=== PATIENT | female | born 1945 | race Caucasian/White ===

== ENCOUNTER → 2016-12-11 | Outpatient (CLI) | payer MEDICARE, OTHER ==
--- NOTE | 2016-12-11 14:19 | BD ---
EXAMINATION TYPE: MG DEXA axial skeleton. DATE OF EXAM: 12/11/2016 1:33 PM COMPARISON: NONE CLINICAL HISTORY: HYPERCALCEMIA Height: 5'6 1/2 Weight: 174 FRAX RISK QUESTIONS: Alcohol (3 or more units per day): no Family History (Parent hip fracture): no Glucocorticoids (More than 3mos): no (Ex: prednisone, prednisolone, methylprednisolone, dexamethasone, and hydrocortisone). History of Fracture in Adulthood: no Secondary Osteoporosis: 1. Type 1 Diabetes: no 2. Hyperthyroidism: no 3. Menopause before 45: yes 4. Malnutrition: no 5. Chronic liver disease: no Rheumatoid Arthritis: no Current Tobacco Use: no RISK FACTORS HISTORY OF: Surgery to Spine When: age 43 Family History of Osteoporosis: Postmenopausal woman: MEDICATIONS: Additional Medications: blood pressure, cholesterols, vitamin , fish oil; Additional History: EXAM MEASUREMENTS: Bone mineral densitometry was performed using the [facility]. Bone mineral density about the R hip (g/cm2): 0.833 Bone mineral density about the L hip (g/cm2): 0.853 T Score values are as follows: -----R Neck: -1.5 -----L Neck: -1.3 -----R Total: -1.4 -----L Total: -1.2 IMPRESSION: Osteopenia (T Score between -2.5 and -1 as noted by T score values: [place] Hips There is slightly increased risk of fracture and the patient may be considered for treatment. Re-Screen 2-5 years. NOTE: T-SCORE=SD OF THE YOUNG ADULT MEAN.
== END | disposition home or self-care (01) ==
LOC: RADBDWWP 13:03
PROVIDERS: ATTEND Family Medicine
DX: M85.851 Other specified disorders of bone density and structure, right thigh (principal); M85.852 Other specified disorders of bone density and structure, left thigh; E83.52 Hypercalcemia
CPT/HCPCS: 77080

== ENCOUNTER 2017-06-14 10:29 | Emergency (ER) | payer MEDICARE, OTHER ==
[2017-06-14 10:39] VITALS: BP 135/65; PULSE 87; RESP 16; TEMP 98.4
--- NOTE | 2017-06-14 10:58 | ED ---
General Adult HPI - General Chief complaint: Urogenital Stated complaint: poss uti Time Seen by Provider: 06/14/17 10:52 Source: patient, RN notes reviewed Mode of arrival: ambulatory Limitations: no limitations - History of Present Illness Initial comments: Patient is a pleasant 72-year-old female presenting to the emergency department with complaints of dysuria. Onset of symptoms was this morning. Patient did notice some blood in her urine. No abdominal or back pain. No fevers. Symptoms are similar to previous urinary tract infections. - Related Data Home Medications Medication Instructions Recorded Confirmed Omeprazole [PriLOSEC] 20 mg PO BID 02/13/14 06/14/17 Aspirin 81 mg PO DAILY 05/04/14 06/14/17 [place]-3 Fatty Acids/Fish Oil [Fish 1 cap PO BID 08/25/14 06/14/17 Oil 1,000 mg Softgel] Pravastatin Sodium [Pravachol] 20 mg PO HS 07/07/16 06/14/17 Lisinopril-Hctz 20-12.5 mg 1 tab PO DAILY 05/08/17 06/14/17 [Zestoretic 20-12.5] Cholecalciferol [Vitamin D3] 1,000 unit PO BID 06/14/17 06/14/17 Previous Rx's Medication Instructions Recorded Sulfamethox-Tmp 800-160Mg [Bactrim 1 each PO Q12HR #20 tab 06/14/17 DS 800-160 mg] Allergies Allergy/AdvReac Type Severity Reaction Status Date / Time niacin AdvReac Unknown MUSCLE Verified 06/14/17 10:48 ACHES floracaine Allergy Severe Swelling Uncoded 06/14/17 10:39 OF EYE LIDS FROM DROPS Review of Systems ROS Statement: Those systems with pertinent positive or pertinent negative responses have been documented in the HPI. ROS Other: All systems not noted in ROS Statement are negative. Constitutional: Denies: fever, chills Eyes: Denies: eye pain ENT: Denies: ear pain Respiratory: Denies: cough Cardiovascular: Denies: chest pain Endocrine: Denies: fatigue Gastrointestinal: Denies: abdominal pain, nausea, vomiting Genitourinary: Reports: dysuria, hematuria Musculoskeletal: Denies: back pain Skin: Denies: rash Neurological: Denies: weakness Past Medical History Past Medical History: Atrial Fibrillation, Cancer, GERD/Reflux, Hyperlipidemia, Hypertension Additional Past Medical History / Comment(s): RECENT LEFT LEG SQUAMOUS CELL LESION REMOVED, SCABBED AREA, HIATAL HERNIA, SPINAL STENOSIS OF NECK, HX IRREGULAR HEART BEAT, HX ATRIAL FIB.,GONZALEZ'S ESOPHAGUS, OSTEOPOROSIS-HAD CT SCAN DONE LT SHOULDER- SHOWED PULMONARY NODULE 7MM LT UPPER LOBE- PATIENT STATES UNAWARE OF THIS HX OF PULMONARY NODULE History of Any Multi-Drug Resistant Organisms: None Reported Past Surgical History: Appendectomy, Back Surgery, Cardiac Ablation, Heart Catheterization, Hernia Repair, Hysterectomy, Joint Replacement Additional Past Surgical History / Comment(s): LESION REMOVED LEFT LEG, KYLE SHOULDER REPLACEMENT, KYLE CATARACTS, Past Anesthesia/Blood Transfusion Reactions: No Reported Reaction Past Psychological History: No Psychological Hx Reported Smoking Status: Former smoker Past Alcohol Use History: Occasional Past Drug Use History: None Reported - Past Family History Mother Family Medical History: Cancer Additional Family Medical History / Comment(s): BREAST & BONE CA- @ AGE 96 Sister(s) Family Medical History: Cancer Additional Family Medical History / Comment(s): SKIN CA General Exam Limitations: no limitations General appearance: alert, in no apparent distress Head exam: Present: atraumatic Eye exam: Present: normal appearance, PERRL ENT exam: Present: normal oropharynx Neck exam: Present: normal inspection Respiratory exam: Present: normal lung sounds bilaterally Cardiovascular Exam: Present: regular rate, normal rhythm GI/Abdominal exam: Present: soft, normal bowel sounds. Absent: distended, tenderness, guarding, rebound, rigid, pulsatile mass Neurological exam: Present: alert Psychiatric exam: Present: normal affect, normal mood Skin exam: Present: normal color Course Vital Signs 06/14/17 10:30 Temperature 98.4 F Pulse Rate 87 Respiratory 16 Rate Blood Pressure 135/65 O2 Sat by Pulse 98 Oximetry Medical Decision Making - Medical Decision Making Patient updated - Lab Data Lab Results 06/14/17 Range/Units 10:50 Urine Color Dark Red Urine Appearance Bloody H (Clear) Urine RBC >182 H (0-5) /hpf Urine WBC >182 H (0-5) /hpf Urine Bacteria Rare H (None) /hpf Disposition Clinical Impression: Urinary tract infection Disposition: HOME SELF-CARE Condition: Stable Instructions: Urinary Tract Infection in Women (ED) Additional Instructions: Please follow-up with primary care physician in the next couple of days for recheck. Have your primary care physician check urine culture results. Return for fever, pain, worsening symptoms or other concerns. Prescriptions: Sulfamethox-Tmp 800-160Mg [Bactrim DS 800-160 mg] 1 each PO Q12HR #20 tab Referrals: René Geronimo DO [Primary Care Provider] - 1-2 days Time of Disposition: 11:18
[2017-06-14 11:10] LABS: Bacteria,Urine Rare /hpf; Particle Count 4337; RBC,Urine >182 /hpf (0-5); WBC,Urine >182 /hpf (0-5)
[2017-06-14 11:11] LABS: Appearance,Urine Bloody (Clear)
== END 2017-06-14 11:35 | disposition home or self-care (01) ==
LOC: EC 10:29
DX: N39.0 Urinary tract infection, site not specified (principal); I48.91 Unspecified atrial fibrillation; K21.9 Gastro-esophageal reflux disease without esophagitis; I10 Essential (primary) hypertension; E78.5 Hyperlipidemia, unspecified; Z95.5 Presence of coronary angioplasty implant and graft; Z87.891 Personal history of nicotine dependence; Z79.82 Long term (current) use of aspirin; Z79.899 Other long term (current) drug therapy; Z88.8 Allergy status to other drugs, medicaments and biological substances
CPT/HCPCS: 87077; 87086; 87186; 99283

== ENCOUNTER → 2017-09-04 | Outpatient (CLI) | payer MEDICARE, OTHER ==
--- NOTE | 2017-09-08 10:25 | MM ---
Reason for exam: screening (asymptomatic). Last mammogram was performed 1 year and 4 months ago. History: Patient is postmenopausal and is nulliparous. Family history of breast cancer in mother at age 66 and breast cancer in cousin at age 65. Physical Findings: A clinical breast exam by your physician is recommended on an annual basis and results should be correlated with mammographic findings. MG 3D Screening Mammo W/Cad Bilateral CC and MLO view(s) were taken. Prior study comparison: May 15, 2016, right breast MG 3d work up w/cad RT. May 12, 2016, bilateral MG 3d screening mammo w/cad. The breast tissue is heterogeneously dense. This may lower the sensitivity of mammography. A couple tiny 5mm benign appearing circumscribed nodules are noted. ASSESSMENT: Benign, BI-RAD 2 RECOMMENDATION: Routine screening mammogram of both breasts in 1 year.
== END | disposition home or self-care (01) ==
LOC: RADMAMWWP 09:53
PROVIDERS: ATTEND Family Medicine
DX: Z12.31 Encounter for screening mammogram for malignant neoplasm of breast (principal)
CPT/HCPCS: 77063; 77067

== ENCOUNTER → 2017-10-05 | Outpatient (CLI) | payer MEDICARE, OTHER ==
--- NOTE | 2017-10-05 13:36 | US ---
EXAMINATION TYPE: US venous doppler duplex LE LT DATE OF EXAM: 10/05/2017 1:21 PM COMPARISON: NONE CLINICAL HISTORY: M79.605 Pain In Limb. Left popliteal fossa pain x 1 week SIDE PERFORMED: LEFT TECHNIQUE: The lower extremity deep venous system is examined utilizing real time linear array sonog cheyanne with graded compression, doppler sonography and color-flow sonography. VESSELS IMAGED: Common Femoral Vein Deep Femoral Vein Greater Saphenous Vein * Femoral Vein Popliteal Vein Small Saphenous Vein * Proximal Calf Veins (* superficial vessels) Grayscale, color doppler, spectral doppler imaging performed of the deep veins of the lower extremiti es. There is normal flow, compressibility, vascular waveforms Left Leg: Negative for DVT IMPRESSION: No sonographic evidence of deep venous thrombosis in the left lower extremity. Tech suki ngs called to Mesha at Dr Danielle's Office at exam's end.
== END | disposition home or self-care (01) ==
LOC: RADUSWWP 12:30
PROVIDERS: ATTEND Family Medicine
DX: M79.605 Pain in left leg (principal)

== ENCOUNTER → 2017-12-01 | Outpatient (CLI) | payer MEDICARE, OTHER | END | disposition home or self-care (01) | LOC: RADUSWWP 09:43 | PROVIDERS: ATTEND Family Medicine | DX: M79.605 Pain in left leg (principal) | CPT/HCPCS: 93923 ==

== ENCOUNTER 2018-01-06 11:57 | Observation (INO) | payer MEDICARE, OTHER ==
[2018-01-06] MEDS ORDERED: NITROGLYCERIN OINT 1 INCH/GM PACKET TOPICAL STA (12:36)
[2018-01-06] MEDS ORDERED: ASPIRIN 81 MG PO STA (12:36)
--- NOTE | 2018-01-06 12:38 | ED ---
General Adult HPI - General Chief complaint: Chest Pain Stated complaint: chest pain Time Seen by Provider: 01/06/18 12:28 Source: patient, RN notes reviewed Mode of arrival: wheelchair Limitations: no limitations - History of Present Illness Initial comments: Patient is a pleasant 72-year-old female presenting to the emergency Department with chest discomfort. Symptoms started yesterday. Symptoms are intermittent. Symptoms are usually worse with exertion. Patient has burning in her chest, up to 7/10. No discomfort at this time. Patient does get some mild associated dyspnea. Patient also had some sweating of her hands and feet. Patient does notice some tingling of her left arm. Patient does have some mild associated nausea. No history of similar symptoms previously. - Related Data Home Medications Medication Instructions Recorded Confirmed Omeprazole [PriLOSEC] 20 mg PO BID 02/13/14 01/06/18 Aspirin 81 mg PO DAILY 05/04/14 01/06/18 [place]-3 Fatty Acids/Fish Oil [Fish 1 cap PO BID 08/25/14 01/06/18 Oil 1,000 mg Softgel] Pravastatin Sodium [Pravachol] 20 mg PO HS 07/07/16 01/06/18 Lisinopril-Hctz 20-12.5 mg 1 tab PO DAILY 05/08/17 01/06/18 [Zestoretic 20-12.5] Cholecalciferol [Vitamin D3] 1,000 unit PO BID 06/14/17 01/06/18 Acetaminophen [Tylenol Arthritis] 650 mg PO DAILY PRN 01/06/18 01/06/18 Allergies Allergy/AdvReac Type Severity Reaction Status Date / Time niacin AdvReac Unknown MUSCLE Verified 01/06/18 12:48 ACHES floracaine Allergy Severe Swelling Uncoded 01/06/18 12:06 OF EYE LIDS FROM DROPS Review of Systems ROS Statement: Those systems with pertinent positive or pertinent negative responses have been documented in the HPI. ROS Other: All systems not noted in ROS Statement are negative. Constitutional: Denies: fever Eyes: Denies: eye pain ENT: Denies: ear pain Respiratory: Denies: cough Cardiovascular: Reports: chest pain Endocrine: Reports: fatigue Gastrointestinal: Reports: nausea Genitourinary: Denies: dysuria Musculoskeletal: Denies: back pain Skin: Denies: rash Neurological: Denies: headache Past Medical History Past Medical History: Atrial Fibrillation, Cancer, GERD/Reflux, Hyperlipidemia, Hypertension Additional Past Medical History / Comment(s): RECENT LEFT LEG SQUAMOUS CELL LESION REMOVED, SCABBED AREA, HIATAL HERNIA, SPINAL STENOSIS OF NECK, HX IRREGULAR HEART BEAT, HX ATRIAL FIB.,GONZALEZ'S ESOPHAGUS, OSTEOPOROSIS-HAD CT SCAN DONE LT SHOULDER- SHOWED PULMONARY NODULE 7MM LT UPPER LOBE- PATIENT STATES UNAWARE OF THIS HX OF PULMONARY NODULE History of Any Multi-Drug Resistant Organisms: None Reported Past Surgical History: Appendectomy, Back Surgery, Cardiac Ablation, Heart Catheterization, Hernia Repair, Hysterectomy, Joint Replacement Additional Past Surgical History / Comment(s): LESION REMOVED LEFT LEG, KYLE SHOULDER REPLACEMENT, KYLE CATARACTS, Past Anesthesia/Blood Transfusion Reactions: No Reported Reaction Past Psychological History: No Psychological Hx Reported Smoking Status: Former smoker Past Alcohol Use History: None Reported Past Drug Use History: None Reported - Past Family History Mother Family Medical History: Cancer Additional Family Medical History / Comment(s): BREAST & BONE CA- @ AGE 96 Sister(s) Family Medical History: Cancer Additional Family Medical History / Comment(s): SKIN CA General Exam Limitations: no limitations General appearance: alert, in no apparent distress Head exam: Present: atraumatic Eye exam: Present: normal appearance, PERRL ENT exam: Present: normal oropharynx Neck exam: Present: normal inspection Respiratory exam: Present: normal lung sounds bilaterally. Absent: chest wall tenderness Cardiovascular Exam: Present: regular rate, normal rhythm Expanded Peripheral pulses: 2+: Radial (R), Radial (L), Dorsalis Pedis (R), Dorsalis Pedis (L) GI/Abdominal exam: Present: soft. Absent: tenderness Extremities exam: Present: normal inspection. Absent: pedal edema, calf tenderness Neurological exam: Present: alert Psychiatric exam: Present: normal affect, normal mood Skin exam: Present: normal color Course Vital Signs 01/06/18 01/06/18 01/06/18 12:01 12:37 14:04 Temperature 98.6 F 97.8 F Pulse Rate 72 61 56 L Respiratory 18 16 18 Rate Blood Pressure 121/73 150/83 120/62 O2 Sat by Pulse 97 97 100 Oximetry EKG Findings - EKG Comments: EKG Findings:: Normal sinus rhythm 68. CT 140. QRS 94. QT 410. QTc 435. Normal axis. Normal QRS. No acute ST change. Medical Decision Making - Medical Decision Making Patient reevaluated and resting comfortably in bed. No discomfort at this time. Patient updated on results and plan. Dr. Gamez has been paged for admission for Dr. Corral - Lab Data Result diagrams: 01/06/18 12:21 01/06/18 12:21 Lab Results 01/06/18 01/06/18 01/06/18 Range/Units 12:21 12:21 12:21 WBC 5.8 (3.8-10.6) k/uL RBC 4.54 (3.80-5.40) m/uL Hgb 13.5 (11.4-16.0) gm/dL Hct 40.2 (34.0-46.0) % MCV 88.4 (80.0-100.0) fL MCH 29.6 (25.0-35.0) pg MCHC 33.5 (31.0-37.0) g/dL RDW 12.9 (11.5-15.5) % Plt Count 260 (150-450) k/uL Neutrophils % 55 % Lymphocytes % 32 % Monocytes % 9 % Eosinophils % 1 % Basophils % 1 % Neutrophils # 3.2 (1.3-7.7) k/uL Lymphocytes # 1.8 (1.0-4.8) k/uL Monocytes # 0.5 (0-1.0) k/uL Eosinophils # 0.1 (0-0.7) k/uL Basophils # 0.0 (0-0.2) k/uL PT (9.0-12.0) sec INR (<1.2) APTT (22.0-30.0) sec Sodium 138 (137-145) mmol/L Potassium 5.1 (3.5-5.1) mmol/L Chloride 100 (98-107) mmol/L Carbon Dioxide 25 (22-30) mmol/L Anion Gap 13 mmol/L BUN 23 H (7-17) mg/dL Creatinine 0.90 (0.52-1.04) mg/dL Est GFR (CKD-EPI)AfAm 74 (>60 ml/min/1.73 sqM) Est GFR (CKD-EPI)NonAf 64 (>60 ml/min/1.73 sqM) Glucose 161 H (74-99) mg/dL Calcium 10.4 H (8.4-10.2) mg/dL Magnesium 2.0 (1.6-2.3) mg/dL Total Bilirubin 0.5 (0.2-1.3) mg/dL AST 23 (14-36) U/L ALT 27 (9-52) U/L Alkaline Phosphatase 61 (38-126) U/L Total Creatine Kinase 41 (30-135) U/L CK-MB (CK-2) 1.2 (0.0-2.4) ng/mL CK-MB (CK-2) Rel Index 2.9 Troponin I <0.012 (0.000-0.034) ng/mL Total Protein 7.5 (6.3-8.2) g/dL Albumin 4.7 (3.5-5.0) g/dL 01/06/18 Range/Units 12:21 WBC (3.8-10.6) k/uL RBC (3.80-5.40) m/uL Hgb (11.4-16.0) gm/dL Hct (34.0-46.0) % MCV (80.0-100.0) fL MCH (25.0-35.0) pg MCHC (31.0-37.0) g/dL RDW (11.5-15.5) % Plt Count (150-450) k/uL Neutrophils % % Lymphocytes % % Monocytes % % Eosinophils % % Basophils % % Neutrophils # (1.3-7.7) k/uL Lymphocytes # (1.0-4.8) k/uL Monocytes # (0-1.0) k/uL Eosinophils # (0-0.7) k/uL Basophils # (0-0.2) k/uL PT 10.1 (9.0-12.0) sec INR 1.0 (<1.2) APTT 27.4 (22.0-30.0) sec Sodium (137-145) mmol/L Potassium (3.5-5.1) mmol/L Chloride (98-107) mmol/L Carbon Dioxide (22-30) mmol/L Anion Gap mmol/L BUN (7-17) mg/dL Creatinine (0.52-1.04) mg/dL Est GFR (CKD-EPI)AfAm (>60 ml/min/1.73 sqM) Est GFR (CKD-EPI)NonAf (>60 ml/min/1.73 sqM) Glucose (74-99) mg/dL Calcium (8.4-10.2) mg/dL Magnesium (1.6-2.3) mg/dL Total Bilirubin (0.2-1.3) mg/dL AST (14-36) U/L ALT (9-52) U/L Alkaline Phosphatase (38-126) U/L Total Creatine Kinase (30-135) U/L CK-MB (CK-2) (0.0-2.4) ng/mL CK-MB (CK-2) Rel Index Troponin I (0.000-0.034) ng/mL Total Protein (6.3-8.2) g/dL Albumin (3.5-5.0) g/dL - Radiology Data Radiology results: image reviewed (Chest x-ray shows no acute process) Disposition Clinical Impression: Chest pain Disposition: ADMITTED IP TO THIS [facility] Referrals: René Geronimo DO [Primary Care Provider] - 1-2 days Decision Time: 14:21
--- NOTE | 2018-01-06 12:57 | XR ---
EXAMINATION TYPE: XR chest 2V DATE OF EXAM: 01/06/2018 COMPARISON: None HISTORY: 72-year-old female with chest pain TECHNIQUE: PA and lateral views FINDINGS: The cardiomediastinal silhouette, aorta, and pulmonary vasculature are within normal limits. Mild dif fuse interstitial prominence and hyperinflation. No consolidation or pleural effusion. Minimal strand s of atelectasis at the peripheral lung bases. Partially visualized bilateral shoulder arthroplasties . IMPRESSION: COPD without acute cardiopulmonary process.
[2018-01-06 13:01] LABS: Basophils % (A) 1 %; Eosinophils # (A) 0.1 k/uL (0-0.7); Eosinophils % (A) 1 %; HCT 40.2 % (34.0-46.0); HGB 13.5 gm/dL (11.4-16.0); Lymphocytes # (A) 1.8 k/uL (1.0-4.8); Lymphocytes % (A) 32 %; MCH 29.6 pg (25.0-35.0); MCHC 33.5 g/dL (31.0-37.0); MCV 88.4 fL (80.0-100.0); Mean Platelet Volume 7.1; Monocytes # (A) 0.5 k/uL (0-1.0); Monocytes % (A) 9 %; Neutrophils # (A) 3.2 k/uL (1.3-7.7); Neutrophils % (A) 55 %; Platelet Count 260 k/uL (150-450); RBC 4.54 m/uL (3.80-5.40); RDW 12.9 % (11.5-15.5); WBC 5.8 k/uL (3.8-10.6)
[2018-01-06 13:03] LABS: Partial Thromboplastin Time 27.4 sec (22.0-30.0); Prothrombin Time 10.1 sec (9.0-12.0)
[2018-01-06 13:04] LABS: Albumin 4.7 g/dL (3.5-5.0); Calcium 10.4 mg/dL (8.4-10.2); Potassium 5.1 mmol/L (3.5-5.1); Total Bilirubin 0.5 mg/dL (0.2-1.3); Total Protein 7.5 g/dL (6.3-8.2)
[2018-01-06 13:24] LABS: Creatine Kinase 41 U/L (30-135)
[2018-01-06 13:37] LABS: Creatine Kinase MB 1.2 ng/mL (0.0-2.4); Troponin I <0.012 ng/mL (0.000-0.034)
[2018-01-06] MEDS ORDERED: NITROGLYCERIN SL TABS 0.4 MG TAB SUBLINGUAL PRN (14:21)
[2018-01-06] MEDS ORDERED: ACETAMINOPHEN TAB 325 MG TAB PO PRN (15:37)
[2018-01-06 19:32] LABS: Creatine Kinase 34 U/L (30-135)
[2018-01-06] MEDS: NITROGLYCERIN OINT 1 INCH/GM PACKET TOPICAL SCH ×2 (19:39→23:32)
[2018-01-06] MEDS: HEPARIN SODIUM,PORCINE 5,000 UNIT/ML 1 ML VIAL SQ SCH ×2 (19:39→23:32)
[2018-01-06 19:44] LABS: Creatine Kinase MB 0.9 ng/mL (0.0-2.4); Troponin I <0.012 ng/mL (0.000-0.034)
[2018-01-06] MEDS: CHOLECALCIFEROL 1,000 UNIT TAB PO SCH (20:08)
[2018-01-06] MEDS ORDERED: PRAVASTATIN SODIUM 20 MG TAB PO SCH (21:00)
[2018-01-06] MEDS ORDERED: NON-FORMULARY DRUG (Omega-3 Fatty Acids/Fish Oil [Fish Oil 1,000 Mg Softgel] 1 CAP) PO SCH (21:00)
[2018-01-06] MEDS ORDERED: IPRATROPIUM-ALBUTEROL 3 ML NEB INHALATION PRN (22:08)
--- NOTE | 2018-01-06 22:16 | P.HPIM ---
History of Present Illness H&P Date: 01/06/18 Chief Complaint: Chest pain Patient is a 72-year-old female with a known history of hypertension, hyperlipidemia, GERD and history of irregular heart rate and cardiac ablation came to ER with complaints of chest pain, burning sensation.. Left retrosternal and radiating to the left arm felt like tingling sensation. Patient says that pain is associated with nausea, sweating, dizziness and lightheadedness. A mcrae has been having chest pain since yesterday on and off lasting about 10 minutes. Chest pain associated with shortness of breath mild. Denied any recent illnesses. No exertional shortness of breath. No history of coronary artery disease in the past. Patient does follow with Dr. Camp Denied any recent illnesses or sick contacts. No recent travel. Currently patient denied any complaints of chest pain. No leg swelling. Chest x-ray showed COPD without acute process EKG normal sinus rhythm next and troponin 2 negative Review of Systems Constitutional: Patient denies any fever or chills . No generalized weakness or weight loss. Abdomen: Patient denied nausea vomiting and diarrhea and abdominal pain. Cardiovascular: Patient denies any chest pain or short of breath no palpitations. Respiratory: patient denied any cough is from production. No shortness of breath Neurologic: Patient denied any numbness or tingling headache. Musculoskeletal: Patient denies any complaints of joint swelling or deformity. Skin: Negative Psychiatric: Negative Endocrine: No heat or cold intolerance. No recent weight gain. Genitourinary: No dysuria or hematuria. All other 14 point ROS negative except the above Past Medical History Past Medical History: Atrial Fibrillation, Cancer, GERD/Reflux, Hyperlipidemia, Hypertension Additional Past Medical History / Comment(s): RECENT LEFT LEG SQUAMOUS CELL LESION REMOVED, SCABBED AREA, HIATAL HERNIA, SPINAL STENOSIS OF NECK, HX IRREGULAR HEART BEAT, HX ATRIAL FIB.,GONZALEZ'S ESOPHAGUS, OSTEOPOROSIS-HAD CT SCAN DONE LT SHOULDER- SHOWED PULMONARY NODULE 7MM LT UPPER LOBE- PATIENT STATES UNAWARE OF THIS HX OF PULMONARY NODULE History of Any Multi-Drug Resistant Organisms: None Reported Past Surgical History: Appendectomy, Back Surgery, Cardiac Ablation, Heart Catheterization, Hernia Repair, Hysterectomy, Joint Replacement Additional Past Surgical History / Comment(s): LESION REMOVED LEFT LEG, KYLE SHOULDER REPLACEMENT, KYLE CATARACTS, Past Anesthesia/Blood Transfusion Reactions: No Reported Reaction Past Psychological History: No Psychological Hx Reported Smoking Status: Former smoker Past Alcohol Use History: None Reported Past Drug Use History: None Reported - Past Family History Mother Family Medical History: Cancer Additional Family Medical History / Comment(s): BREAST & BONE CA- @ AGE 96 Sister(s) Family Medical History: Cancer Additional Family Medical History / Comment(s): SKIN CA Father Family Medical History: Dementia Additional Family Medical History / Comment(s): alzheimers. at age 92 Medications and Allergies Home Medications Medication Instructions Recorded Confirmed Type Omeprazole [PriLOSEC] 20 mg PO BID 02/13/14 01/06/18 History Aspirin 81 mg PO DAILY 05/04/14 01/06/18 History [place]-3 Fatty Acids/Fish Oil [Fish 1 cap PO BID 08/25/14 01/06/18 History Oil 1,000 mg Softgel] Pravastatin Sodium [Pravachol] 20 mg PO HS 07/07/16 01/06/18 History Lisinopril-Hctz 20-12.5 mg 1 tab PO DAILY 05/08/17 01/06/18 History [Zestoretic 20-12.5] Cholecalciferol [Vitamin D3] 1,000 unit PO BID 06/14/17 01/06/18 History Acetaminophen [Tylenol Arthritis] 650 mg PO DAILY PRN 01/06/18 01/06/18 History Allergies Allergy/AdvReac Type Severity Reaction Status Date / Time niacin AdvReac Unknown MUSCLE Verified 01/06/18 12:48 ACHES floracaine Allergy Severe Swelling Uncoded 01/06/18 12:06 OF EYE LIDS FROM DROPS Physical Exam Vitals: Vital Signs Temp Pulse Resp BP Pulse Ox 01/06/18 14:04 97.8 F 56 L 18 120/62 100 01/06/18 12:37 61 16 150/83 97 01/06/18 12:01 98.6 F 72 18 121/73 97 Intake and Output 01/06/18 01/06/18 01/06/18 06:59 14:59 22:59 Other: Weight 81.647 kg PHYSICAL EXAMINATION: Patient is lying in the bed comfortably, no acute distress, awake alert and oriented.. HEENT: Normocephalic. Neck is supple. Pupils reactive. Nostrils clear. Oral cavity is moist. Ears reveal no drainage. Neck reveals no JVD, carotid bruits, or thyromegaly. CHEST EXAMINATION: Trachea is central. Symmetrical expansion. Lung branch clear to auscultation and percussion. CARDIAC: Normal S1, S2 with no gallops. Systolic murmur. ABDOMEN: Soft. Bowel sounds normal. No organomegaly. No abdominal bruits. Extremities: reveal no edema. No clubbing or cyanosis Neurologically awake, alert, oriented x3 with well-coordinated movements. No focal deficits noted Skin: No rash or skin lesions. Psychiatric: Coperative. Nonsuicidal Musculoskeletal: No joint swelling or deformity. Normal range of motion. Results CBC & Chem 7: 01/06/18 12:21 01/06/18 12:21 Labs: Abnormal Lab Results - Last 24 Hours (Table) 01/06/18 Range/Units 12:21 BUN 23 H (7-17) mg/dL Glucose 161 H (74-99) mg/dL Calcium 10.4 H (8.4-10.2) mg/dL Thrombosis Risk Factor Assmnt - DVT/VTE Prophylaxis DVT/VTE Prophylaxis: Pharmacologic Prophylaxis ordered Assessment and Plan Assessment: Chest pain. Rule out ACS History of atrial fibrillation and cardiac ablation. GERD Hypertension Hyperlipidemia Recent left leg squamous cell lesion removed Hiatal hernia Spinal stenosis of the neck History of Gonzalez's esophagus 7 mm left upper lobe lung nodule Previous history of smoking Plan: Patient will be continued on telemetry monitoring. Serial EKG and troponins. Cardiology consult. Continue with the home medications and follow up closely. And with aspirin and check cardiac lipid profile. Further recommendations based on the clinical course. Time with Patient: Greater than 30
[2018-01-07 00:40] LABS: Cholesterol 163 mg/dL (<200); HDL Cholesterol 58 mg/dL (40-60); LDL Cholesterol,Calculated 86 mg/dL (0-99); Triglycerides 96 mg/dL (<150)
[2018-01-07 00:50] LABS: Creatine Kinase 30 U/L (30-135)
[2018-01-07 01:03] LABS: Troponin I <0.012 ng/mL (0.000-0.034)
[2018-01-07] MEDS: NITROGLYCERIN OINT 1 INCH/GM PACKET TOPICAL SCH ×3 (05:43→17:51)
[2018-01-07] MEDS ORDERED: PANTOPRAZOLE 40 MG TABLET PO SCH (07:30)
[2018-01-07] MEDS ORDERED: ASPIRIN 325 MG TAB PO SCH (09:00)
--- NOTE | 2018-01-07 11:58 | P.CRDCN ---
History of Present Illness History of present illness: Mrs. Vann is a pleasant 72-year-old female past medical history significant for dyslipidemia, hypertension and frequent PVCs status post ablation 2006. She follows with Dr. Ayers in the office. She denies history of coronary artery disease. She underwent cardiac catheterization in 2011 which revealed normal coronary arteries. We have been asked to see her in consultation for symptoms of chest pain. She complains of burning sensation in the mid-sternal region intermittently x2 days with palpitations, nausea and left hand tingling. She initially thought the symptoms were related to indigestion and was waiting for it to pass. However after a couple of days with no improvement she came in for evaluation. She underwent an ablation in 2006 for frequent PVC's and feels as though she is starting again to feel a fluttering in her chest at times and can feel her heartbeat which is how she felt prior to the ablation. Thus far telemetry tracings have been unremarkable for PVC's. She is up ambulating in the room and has no further symptoms of chest discomfort. EKG reveals sinus mechanism with no acute ST or T-wave abnormalities. Chest x-rays indicative of COPD with no acute cardiopulmonary process. Laboratory data reviewed, hemoglobin 13.5, platelets 260, sodium 138, potassium 5.1, magnesium 2.0, creatinine 0.9, cardiac enzymes negative 3, LDL 86, HDL 58. Current cardiac medications include aspirin 81 mg daily, lisinopril/HCTZ 20/ 12.5 mg daily, pravastatin 20 mg daily. She also takes omeprazole and vitamin D supplementation. Most recent stress test performed in the office October 2017 Cardiolite exercise stress test was negative for reversible cardiac ischemia. Echocardiogram performed at that time reveals preserved left ventricular systolic function with ejection fraction 50-55% with mild MR. Review of Systems At the time of my exam: CONSTITUTIONAL: Denies fever. Denies chills. EYES: Denies blurred vision. Denies vision changes. Denies eye pain. EARS, NOSE, MOUTH & THROAT: Denies headache. Denies sore throat. Denies ear pain. CARDIOVASCULAR: Denies chest pain. Denies shortness of breath. Denies orthopnea. Denies PND. Denies palpitations. RESPIRATORY: Denies cough. GASTROINTESTINAL: Denies abdominal pain. Denies diarrhea. Denies constipation. Denies nausea. Denies vomiting. MUSCULOSKELETAL: Denies myalgias. INTEGUMENTARY: Denies pruitis. Denies rash. NEUROLOGIC: Denies numbness. Denies tingling. Denies weakness. PSYCHIATRIC: Denies anxiety. Denies depression. ENDOCRINE: Denies fatigue. Denies weight change. Denies polydipsia. Denies polyurina. GENITOURINARY: Denies burning, hematuria or urgency with micturation. HEMATOLOGIC: Denies history of anemia. Denies bleeding. Past Medical History Past Medical History: Atrial Fibrillation, Cancer, GERD/Reflux, Hyperlipidemia, Hypertension Additional Past Medical History / Comment(s): RECENT LEFT LEG SQUAMOUS CELL LESION REMOVED, SCABBED AREA, HIATAL HERNIA, SPINAL STENOSIS OF NECK, HX IRREGULAR HEART BEAT, HX ATRIAL FIB.,GONZALEZ'S ESOPHAGUS, OSTEOPOROSIS-HAD CT SCAN DONE LT SHOULDER- SHOWED PULMONARY NODULE 7MM LT UPPER LOBE- PATIENT STATES UNAWARE OF THIS HX OF PULMONARY NODULE History of Any Multi-Drug Resistant Organisms: None Reported Past Surgical History: Appendectomy, Back Surgery, Cardiac Ablation, Heart Catheterization, Hernia Repair, Hysterectomy, Joint Replacement Additional Past Surgical History / Comment(s): LESION REMOVED LEFT LEG, KYLE SHOULDER REPLACEMENT, KYLE CATARACTS, Past Anesthesia/Blood Transfusion Reactions: No Reported Reaction Past Psychological History: No Psychological Hx Reported Smoking Status: Former smoker Past Alcohol Use History: None Reported Past Drug Use History: None Reported - Past Family History Mother Family Medical History: Cancer Additional Family Medical History / Comment(s): BREAST & BONE CA- @ AGE 96 Sister(s) Family Medical History: Cancer Additional Family Medical History / Comment(s): SKIN CA Father Family Medical History: Dementia Additional Family Medical History / Comment(s): alzheimers. at age 92 Medications and Allergies Home Medications Medication Instructions Recorded Confirmed Type Omeprazole [PriLOSEC] 20 mg PO BID 02/13/14 01/06/18 History Aspirin 81 mg PO DAILY 05/04/14 01/06/18 History [place]-3 Fatty Acids/Fish Oil [Fish 1 cap PO BID 08/25/14 01/06/18 History Oil 1,000 mg Softgel] Pravastatin Sodium [Pravachol] 20 mg PO HS 07/07/16 01/06/18 History Lisinopril-Hctz 20-12.5 mg 1 tab PO DAILY 05/08/17 01/06/18 History [Zestoretic 20-12.5] Cholecalciferol [Vitamin D3] 1,000 unit PO BID 06/14/17 01/06/18 History Acetaminophen [Tylenol Arthritis] 650 mg PO DAILY PRN 01/06/18 01/06/18 History Allergies Allergy/AdvReac Type Severity Reaction Status Date / Time niacin AdvReac Unknown MUSCLE Verified 01/06/18 12:48 ACHES floracaine Allergy Severe Swelling Uncoded 01/06/18 12:06 OF EYE LIDS FROM DROPS Physical Exam Vitals: Vital Signs Temp Pulse Pulse Resp BP BP Pulse Ox 01/07/18 04:00 97.8 F 61 18 127/58 96 01/07/18 00:00 97.9 F 54 L 16 121/56 97 01/06/18 20:00 97.9 F 69 18 121/58 97 01/06/18 16:48 97.7 F 69 18 140/69 97 01/06/18 16:25 97.8 F 64 18 116/61 98 01/06/18 14:04 97.8 F 56 L 18 120/62 100 01/06/18 12:37 61 16 150/83 97 01/06/18 12:01 98.6 F 72 18 121/73 97 Intake and Output 01/06/18 01/07/18 01/07/18 22:59 06:59 14:59 Intake Total 200 Balance 200 Intake: Oral 200 Other: Weight 79.8 kg Blood pressure 127/58 heart rate 61 afebrile maintaining oxygen saturation on room air GENERAL: This is a 72-year-old female in no apparent distress at the time of my examination. HEENT: Head is atraumatic, normocephalic. Pupils are equal, round. Sclerae anicteric. Conjunctivae are clear. Mucous membranes of the mouth are moist. Neck is supple. There is no jugular venous distention. No carotid bruit is heard. LUNGS: Clear to auscultation no wheezes, rales or rhonchi. No chest wall tenderness is noted on palpation or with deep breathing. HEART: Regular rate and rhythm without murmurs, rubs or gallops. S1 and S2 heard. ABDOMEN: Soft, nontender. Bowel sounds are heard. No organomegaly noted. EXTREMITIES: No evidence of peripheral edema and no calf tenderness noted. VASCULAR: Radial and dorsalis pedis pulses palpated, no evidence of clubbing. NEUROLOGIC: Patient is awake, alert and oriented x3. Results 01/06/18 12:21 01/06/18 12:21 Cardiac Enzymes 01/06/18 01/06/18 01/06/18 Range/Units 12:21 12:21 18:47 AST 23 (14-36) U/L CK-MB (CK-2) 1.2 0.9 (0.0-2.4) ng/mL Troponin I <0.012 <0.012 (0.000-0.034) ng/mL 01/07/18 Range/Units 00:11 AST (14-36) U/L CK-MB (CK-2) 1.0 (0.0-2.4) ng/mL Troponin I <0.012 (0.000-0.034) ng/mL Coagulation 01/06/18 Range/Units 12:21 PT 10.1 (9.0-12.0) sec APTT 27.4 (22.0-30.0) sec Lipids 01/07/18 Range/Units 00:11 Triglycerides 96 (<150) mg/dL Cholesterol 163 (<200) mg/dL HDL Cholesterol 58 (40-60) mg/dL CBC 01/06/18 Range/Units 12:21 WBC 5.8 (3.8-10.6) k/uL RBC 4.54 (3.80-5.40) m/uL Hgb 13.5 (11.4-16.0) gm/dL Hct 40.2 (34.0-46.0) % Plt Count 260 (150-450) k/uL Comprehensive Metabolic Panel 01/06/18 Range/Units 12:21 Sodium 138 (137-145) mmol/L Potassium 5.1 (3.5-5.1) mmol/L Chloride 100 (98-107) mmol/L Carbon Dioxide 25 (22-30) mmol/L BUN 23 H (7-17) mg/dL Creatinine 0.90 (0.52-1.04) mg/dL Glucose 161 H (74-99) mg/dL Calcium 10.4 H (8.4-10.2) mg/dL AST 23 (14-36) U/L ALT 27 (9-52) U/L Alkaline Phosphatase 61 (38-126) U/L Total Protein 7.5 (6.3-8.2) g/dL Albumin 4.7 (3.5-5.0) g/dL Current Medications Generic Name Dose Route Start Last Admin Trade Name Freq PRN Reason Stop Dose Admin Acetaminophen 650 mg 01/06/18 15:37 01/06/18 20:08 Tylenol Tab PO 650 mg DAILY PRN Administration Pain Albuterol/Ipratropium 3 ml 01/06/18 22:08 Duoneb 0.5 Mg-3 Mg/3 Ml Soln INHALATION RT-QID PRN Shortness Of Breath Or Wheezing Aspirin 325 mg 01/07/18 09:00 Aspirin PO DAILY LEO Cholecalciferol 1,000 unit 01/06/18 21:00 01/06/18 20:08 Vitamin D3 PO 1,000 unit BID LEO Administration Heparin Sodium (Porcine) 5,000 unit 01/06/18 16:00 01/06/18 23:32 Heparin SQ 5,000 unit Q8HR LEO Administration Nitroglycerin 1 inch 01/06/18 18:00 01/07/18 05:43 Nitro-Bid Oint TOPICAL Not Given Q6HR [facility] Nitroglycerin 0.4 mg 01/06/18 14:21 Nitrostat SUBLINGUAL Q5M PRN Chest Pain Pantoprazole Sodium 40 mg 01/07/18 07:30 Protonix PO AC-BRKFST LEO Pravastatin Sodium 20 mg 01/06/18 21:00 01/06/18 20:08 Pravachol PO 20 mg HS LEO Administration Intake and Output 01/06/18 01/07/18 01/07/18 22:59 06:59 14:59 Intake Total 200 Balance 200 Intake: Oral 200 Other: Weight 79.8 kg 01/06/18 12:21 01/06/18 12:21 Assessment and Plan Assessment: ASSESSMENT 1. Chest pain, atypical. Acute coronary event has been ruled out with no EKG evidence of ischemia and negative cardiac enzymes. 2. Hypertension 3. History of ablation for frequent PVCs 4. Former tobacco use 5. Dyslipidemia PLAN Perform stress echocardiogram to assess for exercise-induced cardiac ischemia. If this is normal she is stable from a cardiac perspective. Recommend possibly further workup as an outpatient for possible COPD. Follow-up with Dr. Leblanc in 2-3 weeks. Thank you kindly for this consultation. Nurse Practitioner note has been reviewed, I agree with a documented findings and plan of care. Patient was seen and examined.
[2018-01-07 12:12] VITALS: RESP 16
[2018-01-07] MEDS: CHOLECALCIFEROL 1,000 UNIT TAB PO SCH (12:20)
[2018-01-07] MEDS: HEPARIN SODIUM,PORCINE 5,000 UNIT/ML 1 ML VIAL SQ SCH ×2 (12:20→17:51)
--- NOTE | 2018-01-07 13:17 | P.STRESS ---
- Stress Test Note Stress Test Results/Findings: Exam Performed: stress echo exercise Exam Date: 01/07/18 Reason for Exam: CHEST PAIN Height: 5 ft 7 in Weight: 79.379 kg Protocol: MATT Stage: 2 Duration of Exercise: 6:00 Resting Heart Rate: 68 Resting Blood Pressure: 92/50 Maximum Achieved Heart Rate: 163 Maximum Achieved Blood Pressure: 168/54 85% PMHR: 125 100% PMHR: 147 METS: 7.0 Technologist Comment: Stress Test Results/Findings: This is a 72-year-old female with history of hypertension and admitted to the hospital for chest pain and shortness of breath. She also has family history and hypercholesterolemia. Stress data: Baseline EKG showed sinus rhythm with OH interval and QRS duration. Patient walked on the Matt protocol for 6 minutes achieving a maximal heart rate of 163 with a blood pressure 168/54. EKGs taken during and after the exercise did not reveal any changes to suggest ischemia. Echo data: Baseline echo images showed normal wall motion and thickening. Exercise echo images showed augmentation of wall motion and thickening in all the segments. Final impression: #1. Negative stress test #2. Patient did not express any chest pain. #3. Negative stress echo. #4. No arrhythmias noted
[2018-01-07 16:05] VITALS: BP 101/54; PULSE 71; TEMP 98.3
--- NOTE | 2018-01-07 22:42 | P.DS ---
Providers Date of admission: 01/06/18 14:21 Expected date of discharge: 01/07/18 Attending physician: Cara Gamez Consults: 01/06/18 14:21 Consult Physician Urgent Consulting Provider: Alf Devine Consult Reason/Comments: cp Do you want consulting provider notified?: Yes Primary care [facility] Course: Discharge diagnosis Chest pain. Ruled out ACS. Negative exercise stress echo. History of atrial fibrillation and cardiac ablation. GERD Hypertension Hyperlipidemia Recent left leg squamous cell lesion removed Hiatal hernia Spinal stenosis of the neck History of Holt's esophagus 7 mm left upper lobe lung nodule Previous history of smoking Hospital course Patient is a 72-year-old female with a known history of hypertension, hyperlipidemia, GERD and history of irregular heart rate and cardiac ablation came to ER with complaints of chest pain, burning sensation.. Left retrosternal and radiating to the left arm felt like tingling sensation. Patient says that pain is associated with nausea, sweating, dizziness and lightheadedness. Patient has been having chest pain since yesterday on and off lasting about 10 minutes. Chest pain associated with shortness of breath mild. Denied any recent illnesses. No exertional shortness of breath. No history of coronary artery disease in the past. Patient does follow with Dr. Camp Denied any recent illnesses or sick contacts. No recent travel. Currently patient denied any complaints of chest pain. No leg swelling. Chest x-ray showed COPD without acute process EKG normal sinus rhythm troponin 3 negative Patient was continued on telemetry monitoring. Serial EKGs and troponins have been negative. Cardiology has seen the patient and recommended stress echocardiogram which was done showed negative stress echo and negative stress test. Currently patient denied any chest pain or shortness of breath. Otherwise patient is stable to be discharged home and follow with her credentialing coordinator and primary care physician as an outpatient. Patient Was advised to hold her blood pressure medications due to blood pressure not elevated while in the hospital. Recommended to follow with her primary care physician before restarting hypertensive medications. PHYSICAL EXAMINATION: Patient is lying in the bed comfortably, no acute distress, awake alert and oriented.. HEENT: Normocephalic. Neck is supple. Pupils reactive. Nostrils clear. Oral cavity is moist. Ears reveal no drainage. Neck reveals no JVD, carotid bruits, or thyromegaly. CHEST EXAMINATION: Trachea is central. Symmetrical expansion. Lung branch clear to auscultation and percussion. CARDIAC: Normal S1, S2 with no gallops. No murmurs ABDOMEN: Soft. Bowel sounds normal. No organomegaly. No abdominal bruits. Extremities: reveal no edema. No clubbing or cyanosis Neurologically awake, alert, oriented x3 with well-coordinated movements. No focal deficits noted Skin: No rash or skin lesions. Psychiatric: Coperative. Nonsuicidal Musculoskeletal: No joint swelling or deformity. Normal range of motion. Vital Signs 01/07/18 16:00 Temperature 98.3 F Pulse Rate [ 71 Pulse Oximetery ] Respiratory 16 Rate Blood Pressure 101/54 [Left Arm] O2 Sat by Pulse 96 Oximetry Patient Condition at Discharge: Stable Plan - Discharge Summary Discharge Rx Participant: No New Discharge Prescriptions: Continue Omeprazole [PriLOSEC] 20 mg PO BID Aspirin 81 mg PO DAILY [place]-3 Fatty Acids/Fish Oil [Fish Oil 1,000 mg Softgel] 1 cap PO BID Pravastatin Sodium [Pravachol] 20 mg PO HS Lisinopril-Hctz 20-12.5 mg [Zestoretic 20-12.5] 1 tab PO DAILY Cholecalciferol [Vitamin D3] 1,000 unit PO BID Acetaminophen [Tylenol Arthritis] 650 mg PO DAILY PRN PRN Reason: Pain Discharge Medication List Omeprazole [PriLOSEC] 20 mg PO BID 02/13/14 [History] Aspirin 81 mg PO DAILY 05/04/14 [History] [place]-3 Fatty Acids/Fish Oil [Fish Oil 1,000 mg Softgel] 1 cap PO BID 08/25/14 [ History] Pravastatin Sodium [Pravachol] 20 mg PO HS 07/07/16 [History] Lisinopril-Hctz 20-12.5 mg [Zestoretic 20-12.5] 1 tab PO DAILY 05/08/17 [History ] Cholecalciferol [Vitamin D3] 1,000 unit PO BID 06/14/17 [History] Acetaminophen [Tylenol Arthritis] 650 mg PO DAILY PRN 01/06/18 [History] Follow up Appointment(s)/Referral(s): Walt Leblanc MD [STAFF PHYSICIAN] - 2 Weeks (Office will call with appt) René Geronimo DO [Primary Care Provider] - 1-2 days Patient Instructions/Handouts: Chest Pain (DC) Discharge Disposition: HOME SELF-CARE
--- NOTE | 2018-01-11 15:40 | ECHOS ---
Stress Test Results/Findings: Exam Performed: stress echo exercise Exam Date: 01/07/18 Reason for Exam: CHEST PAIN Height: 5 ft 7 in Weight: 79.379 kg Protocol: MATT Stage: 2 Duration of Exercise: 6:00 Resting Heart Rate: 68 Resting Blood Pressure: 92/50 Maximum Achieved Heart Rate: 163 Maximum Achieved Blood Pressure: 168/54 85% PMHR: 125 100% PMHR: 147 METS: 7.0 Technologist Comment: Stress Test Results/Findings: This is a 72-year-old female with history of hypertension and admitted to the hospital for chest pain and shortness of breath. She also has family history and hypercholesterolemia. Stress data: Baseline EKG showed sinus rhythm with SC interval and QRS duration. Patient walked on the Matt protocol for 6 minutes achieving a maximal heart rate of 163 with a blood pressure 168/54. EKGs taken during and after the exercise did not reveal any changes to suggest ischemia. Echo data: Baseline echo images showed normal wall motion and thickening. Exercise echo images showed augmentation of wall motion and thickening in all the segments. Final impression: #1. Negative stress test #2. Patient did not express any chest pain. #3. Negative stress echo. #4. No arrhythmias noted MTDD
== END 2018-01-07 18:25 | disposition home or self-care (01) ==
LOC: EC 11:57 → 3OBS 14:21
PROVIDERS: ADMIT Hospitalist; ATTEND Hospitalist
DX: R07.89 Other chest pain (principal); J44.9 Chronic obstructive pulmonary disease, unspecified; R61 Generalized hyperhidrosis; R20.2 Paresthesia of skin; R11.0 Nausea; R42 Dizziness and giddiness; I10 Essential (primary) hypertension; E78.5 Hyperlipidemia, unspecified; K21.9 Gastro-esophageal reflux disease without esophagitis; M48.02 Spinal stenosis, cervical region; K22.70 Barrett's esophagus without dysplasia; K44.9 Diaphragmatic hernia without obstruction or gangrene; R91.1 Solitary pulmonary nodule; Z87.891 Personal history of nicotine dependence; Z79.82 Long term (current) use of aspirin; Z79.899 Other long term (current) drug therapy; Z88.4 Allergy status to anesthetic agent; Z88.8 Allergy status to other drugs, medicaments and biological substances; Z87.2 Personal history of diseases of the skin and subcutaneous tissue; Z86.79 Personal history of other diseases of the circulatory system; M81.0 Age-related osteoporosis without current pathological fracture; Z96.612 Presence of left artificial shoulder joint; Z96.611 Presence of right artificial shoulder joint; Z80.8 Family history of malignant neoplasm of other organs or systems; Z82.0 Family history of epilepsy and other diseases of the nervous system
CPT/HCPCS: 99285 ×2; 96372 ×2; 36415; 93005; 93351; 80061; 80053; 82550 ×2; 82553 ×2; 83735; 84484 ×2; 85025; 85610; 85730; 71046; G0378 ×2; J1644 ×2

== ENCOUNTER → 2018-02-08 | Outpatient (CLI) | payer MEDICARE, OTHER ==
--- NOTE | 2018-02-08 16:39 | CT ---
EXAMINATION TYPE: CT chest w con DATE OF EXAM: 02/08/2018 COMPARISON: 08/21/2014 CT chest HISTORY: Pulmonary nodule CT DLP: 265.3 mGycm, Automated exposure control for dose reduction was used. CONTRAST: Performed injected with 100 mL of Isovue 300. TECHNIQUE: Axial images were obtained at 5 mm thick sections. Reconstructed images are reviewed on [employer] computer in the coronal plane. FINDINGS: Portion of the thyroid visualized is normal. There is a triangular infiltrate within the lingula which is nonspecific measuring 0.7 cm. This may h ave been faintly present previously and would be enlarging. Series 4 image 35. Close follow-up is rec ommended with CT chest 3-6 months. No enlarged mediastinal or hilar adenopathy is evident. The ascending aorta diameter at the level o f the main pulmonary artery is 3.3 cm. The main pulmonary artery diameter at the bifurcation is 2.[address] sections are obtained through the upper abdomen. Abdomen is essentially unremarkable. IMPRESSIONS: 1. Triangular area of increasing density within the lingula short-term follow-up in 3-6 months is rec ommended.
== END | disposition home or self-care (01) ==
LOC: RADCTMAIN 12:45
PROVIDERS: ATTEND Family Medicine
DX: J98.4 Other disorders of lung (principal); J44.9 Chronic obstructive pulmonary disease, unspecified; Z01.812 Encounter for preprocedural laboratory examination
CPT/HCPCS: 82565; 84520; 71260; 36415; Q9967

== ENCOUNTER → 2018-05-11 | Outpatient (CLI) | payer MEDICARE, OTHER ==
--- NOTE | 2018-05-11 13:51 | CT ---
EXAMINATION TYPE: CT chest w con DATE OF EXAM: 05/11/2018 COMPARISON: 02/08/2018 HISTORY: 73-year-old female Pulmonary nodule, possible COPD. TECHNIQUE: Contiguous axial scanning of the chest after the administration of 300 mL of Isovue 300. Coronal/sagittal reconstructions performed. CT DLP: 479mGycm. Automatic exposure control utilized for a dose reduction. FINDINGS: Heart normal size without pericardial effusion. Mild ectasia ascending aorta 3.5 cm with mild atherosclerotic arch calcifications and conventional ar ch vessel branching anatomy. No thoracic lymphadenopathy. Evaluation of the lungs shows mild scattered pleural parenchymal scarring in the upper lungs Stable tiny 3 mm peripheral right upper lobe pulmonary nodule axial image 18. Stable 5 mm pulmonary nodule right mid lung axial image 32. Stable 6 mm triangular-shaped pulmonary nodule left mid lung along the major fissure. While this is s lightly larger from 2015, its triangular shape and presence along the major fissure is suggestive of a pulmonary lymph node. Stability for 3 months further supports a benign etiology. No consolidation or pleural effusion. Small hiatal hernia. Visualized upper abdomen shows low-density diffuse thickening of the left adrena l gland, unchanged from 2015 suggesting possible underlying adrenal hyperplasia. Bones: Mild endplate spondylosis mid to lower thoracic spine. IMPRESSION: 1. A few scattered pulmonary nodules which are unchanged. The largest is 6 mm and is triangular-shape d in the left mid lung along the major fissure. While this is slightly more full from 2015, its trian gular shape and presence along the major fissure is suggestive of a pulmonary lymph node. Stability f or 3 months further supports a benign etiology. 2. Small hiatal hernia.
== END | disposition home or self-care (01) ==
LOC: RADCTMAIN 08:20
PROVIDERS: ATTEND Family Medicine
DX: R91.8 Other nonspecific abnormal finding of lung field (principal); Z01.812 Encounter for preprocedural laboratory examination; J44.9 Chronic obstructive pulmonary disease, unspecified
CPT/HCPCS: 82565; 84520; 71260; 36415; Q9967

== ENCOUNTER → 2018-09-06 | Outpatient (CLI) | payer MEDICARE, OTHER ==
--- NOTE | 2018-09-07 11:46 | MM ---
Reason for exam: screening (asymptomatic). Last mammogram was performed 1 year ago. History: Patient is postmenopausal and is nulliparous. Family history of breast cancer in mother at age 66 and breast cancer in cousin at age 65. Physical Findings: A clinical breast exam by your physician is recommended on an annual basis and results should be correlated with mammographic findings. MG 3D Screening Mammo W/Cad Bilateral CC and MLO view(s) were taken. Prior study comparison: September 04, 2017, bilateral MG 3d screening mammo w/cad. May 15, 2016, right breast MG 3d work up w/cad RT. The breast tissue is heterogeneously dense. This may lower the sensitivity of mammography. There is chronic nodularity in the right breast. 9-10 o'clock anterior focal asymmetry left breast appears more defined and incompletely disperses on 3D. ASSESSMENT: Incomplete: need additional imaging evaluation, BI-RAD 0 RECOMMENDATION: Special view mammogram of the left breast. If lesion persists on supplemental views, image directed ultrasound is recommended. [facility] will attempt to contact patient to return for supplemental views and ultrasound if indicated.
== END ==
LOC: RADMAMWWP 12:28
PROVIDERS: ATTEND Family Medicine
DX: Z12.31 Encounter for screening mammogram for malignant neoplasm of breast (principal)
CPT/HCPCS: 77063; 77067

== ENCOUNTER → 2018-09-21 | Outpatient (CLI) | payer MEDICARE, OTHER ==
--- NOTE | 2018-09-21 14:24 | MM ---
Reason for exam: additional evaluation requested from abnormal screening. Last mammogram was performed less than 1 month ago. History: Patient is postmenopausal, history of other cancer, and is nulliparous. Family history of breast cancer in mother at age 66 and breast cancer in maternal cousin at age 65. Physical Findings: Nurse did not find any significant physical abnormalities on exam. MG 3D Work Up W/Cad LT Spot compression CC, spot compression MLO, and LM view(s) were taken of the left breast. Prior study comparison: September 06, 2018, bilateral MG 3d screening mammo w/cad. September 04, 2017, bilateral MG 3d screening mammo w/cad. The breast tissue is heterogeneously dense. This may lower the sensitivity of mammography. The questioned medial anterior focal asymmetry appears to disperse on spot views. Precautionary 6 month follow up recommended. These results were verbally communicated with the patient and result sheet given to the patient on 09/21/18. ASSESSMENT: Probably benign, BI-RAD 3 RECOMMENDATION: Follow-up diagnostic mammogram of the left breast in 6 months.
== END | disposition home or self-care (01) ==
LOC: RADMAMWWP 12:51
PROVIDERS: ATTEND Family Medicine
DX: R92.8 Other abnormal and inconclusive findings on diagnostic imaging of breast (principal)
CPT/HCPCS: 77065; G0279; 77061

== ENCOUNTER → 2018-09-30 | Outpatient (CLI) | payer MEDICARE, OTHER ==
--- NOTE | 2018-10-03 23:58 | CT ---
EXAMINATION TYPE: CT chest w con DATE OF EXAM: 09/30/2018 COMPARISON: 05/11/2018 and 08/21/2014 HISTORY: 73-year-old female f/u pulmonary nodule TECHNIQUE: Contiguous axial scanning of the chest after the administration of 100 mL of Isovue 300. Coronal/sagittal reconstructions performed. CT DLP: 502mGycm. Automatic exposure control utilized for a dose reduction. FINDINGS: Heart normal size without pericardial effusion. Aorta normal caliber with conventional or vessel branching anatomy. Very mild atherosclerotic arch ca lcifications. No thoracic lymphadenopathy by CT size criteria. Redemonstrated scattered pulmonary nodules mostly measuring up to 4 mm. The pulmonary nodule in quest ion within the left midlung, again noted to be along the major fissure currently measures 7 mm versus 6 mm on 05/11/2018 and 5 mm on 08/21/2014. This demonstrates relatively indolent behavior. Remaining p ulmonary nodules are unchanged from 2015. No consolidation or pleural effusion. Visualized upper abdomen show similar diffuse thickening of the left adrenal gland without discrete n odularity. Bones: Endplate spondylosis mid thoracic spine. 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 IMPRESSION: 1. The left midlung pulmonary nodule measures 7 mm now versus 6 mm on 05/11/2018 and 5 mm on 08/21/2014 . This shows fairly indolent behavior and more long-term surveillance may be indicated given the mini mal, gradual growth. 1 year follow-up recommended. 2. The remaining pulmonary nodules measuring up to 4 mm are unchanged back to 2014.
== END | disposition home or self-care (01) ==
LOC: RADCTMAIN 12:22
PROVIDERS: ATTEND Family Medicine
DX: R91.8 Other nonspecific abnormal finding of lung field (principal)
CPT/HCPCS: 71260; 82565; 84520

== ENCOUNTER → 2019-03-31 | Outpatient (CLI) | payer MEDICARE, OTHER ==
--- NOTE | 2019-03-31 09:14 | MM ---
Reason for exam: follow-up at short interval from prior study. Last mammogram was performed 6 months ago. History: Patient is postmenopausal, history of other cancer, and is nulliparous. Family history of breast cancer in mother at age 66 and breast cancer in maternal cousin at age 65. Physical Findings: Nurse did not find any significant physical abnormalities on exam. MG 3D Diag Mammo W/Cad LT CC and MLO view(s) were taken of the left breast. Prior study comparison: September 21, 2018, left breast MG 3d work up w/cad LT. September 06, 2018, bilateral MG 3d screening mammo w/cad. There are benign appearing round linear calcifications bilaterally. Previous mammotome biopsy in the left breast. There is no discrete abnormality. These results were verbally communicated with the patient and result sheet given to the patient on 03/31/19. ASSESSMENT: Benign, BI-RAD 2 RECOMMENDATION: Return to routine screening mammogram schedule for both breasts. Back on schedule. Manage on a clinical basis with regard to left breast pain.
== END | disposition home or self-care (01) ==
LOC: RADMAMWWP 08:16
PROVIDERS: ATTEND Physician Assistant Medical
DX: R92.8 Other abnormal and inconclusive findings on diagnostic imaging of breast (principal)
CPT/HCPCS: 77065; G0279; 77061

== ENCOUNTER → 2019-04-18 | Outpatient (CLI) | payer MEDICARE, OTHER ==
--- NOTE | 2019-04-18 15:22 | CT ---
EXAMINATION TYPE: CT chest w con DATE OF EXAM: 04/18/2019 COMPARISON: 09/30/2018 HISTORY: Left upper lobe pulmonary nodule CT DLP: 269.0 mGycm Automated exposure control for dose reduction was used. CONTRAST: CT scan of the chest is performed with IV Contrast, patient injected with 100 mL of Isovue 300. FINDINGS: LUNGS: Redemonstrated scattered pulmonary nodules mostly measuring up to 4 mm. Are stable The pulmona ry nodule in question within the left midlung, again noted to be along the major fissure currently me asures 7 mm stable compared to previous.. MEDIASTINUM: There is a stable appearing 1.4 cm pretracheal lymph node measured in short axis. OTHER: There is thickening of the left adrenal gland. Hypertrophic and degenerative changes of the v ertebral column. Bilateral shoulder prostheses noted. This does obscure portions of the upper thorax and soft tissue neck. IMPRESSION: 1. Stable bilateral pulmonary nodules unchanged from prior exam follow-up in 1 year recommended.
== END | disposition home or self-care (01) ==
LOC: RADCTMAIN 12:56
PROVIDERS: ATTEND Family Medicine
DX: R91.8 Other nonspecific abnormal finding of lung field (principal); E11.9 Type 2 diabetes mellitus without complications
CPT/HCPCS: 71260; Q9967

== ENCOUNTER → 2020-01-06 | Outpatient (CLI) | payer MEDICARE ==
--- NOTE | 2020-01-09 10:35 | MM ---
Reason for exam: screening (asymptomatic). Last mammogram was performed 9 months ago. History: Patient is postmenopausal, history of other cancer, and is nulliparous. Family history of breast cancer in mother at age 66 and breast cancer in maternal cousin at age 65. Physical Findings: A clinical breast exam by your physician is recommended on an annual basis and results should be correlated with mammographic findings. MG 3D Screening Mammo W/Cad Bilateral CC and MLO view(s) were taken. Prior study comparison: March 31, 2019, left breast MG 3d diag mammo w/cad LT. September 21, 2018, left breast MG 3d work up w/cad LT. The breast tissue is heterogeneously dense. This may lower the sensitivity of mammography. Finding: There are typically benign dystrophic, round, linear calcifications in both breasts. There is a chronic nodularity in the right breast. Asymmetric breast tissue stable upper aspect. There is no discrete abnormality. ASSESSMENT: Benign, BI-RAD 2 RECOMMENDATION: Routine screening mammogram of both breasts in 1 year.
== END | disposition home or self-care (01) ==
LOC: RADMAMWWP 13:37
PROVIDERS: ATTEND Family Medicine
DX: Z12.31 Encounter for screening mammogram for malignant neoplasm of breast (principal)
CPT/HCPCS: 77063; 77067

== ENCOUNTER 2020-03-26 12:22 | Emergency (ER) | payer MEDICARE ==
[2020-03-26 12:26] VITALS: BP 139/65; PULSE 71; RESP 18; TEMP 98.7
--- NOTE | 2020-03-26 12:38 | ED ---
General Adult HPI - General Chief complaint: Urogenital Stated complaint: UTI Time Seen by Provider: 03/26/20 12:27 Source: patient, RN notes reviewed, old records reviewed Mode of arrival: ambulatory Limitations: no limitations - History of Present Illness Initial comments: 74-year-old female presented for evaluation of dysuria and urinary frequency. Patient states she has had urinary tract infections in the past and this feels identical. She denies fever. Denies vomiting. Denies abdominal pain. Denies flank pain or back pain. She has been eating and drinking well. No other symptoms. - Related Data Home Medications Medication Instructions Recorded Confirmed Omeprazole [PriLOSEC] 20 mg PO BID 02/13/14 01/06/18 Aspirin 81 mg PO DAILY 05/04/14 01/06/18 [place]-3 Fatty Acids/Fish Oil [Fish 1 cap PO BID 08/25/14 01/06/18 Oil 1,000 mg Softgel] Pravastatin Sodium [Pravachol] 20 mg PO HS 07/07/16 01/06/18 Lisinopril-Hctz 20-12.5 mg 1 tab PO DAILY 05/08/17 01/06/18 [Zestoretic 20-12.5] Cholecalciferol [Vitamin D3 (25 1,000 unit PO BID 06/14/17 01/06/18 Mcg = 1000 Iu)] Acetaminophen [Tylenol Arthritis] 650 mg PO DAILY PRN 01/06/18 01/06/18 Previous Rx's Medication Instructions Recorded Sulfamethox-Tmp 800-160Mg [Bactrim 1 tab PO Q12HR #14 tab 03/26/20 DS 800-160 mg] Allergies Allergy/AdvReac Type Severity Reaction Status Date / Time niacin AdvReac Unknown MUSCLE Verified 03/26/20 12:27 ACHES floracaine Allergy Severe Swelling Uncoded 03/26/20 12:27 OF EYE LIDS FROM DROPS Review of Systems ROS Statement: Those systems with pertinent positive or pertinent negative responses have been documented in the HPI. ROS Other: All systems not noted in ROS Statement are negative. Past Medical History Past Medical History: Atrial Fibrillation, Cancer, GERD/Reflux, Hyperlipidemia, Hypertension Additional Past Medical History / Comment(s): RECENT LEFT LEG SQUAMOUS CELL LESION REMOVED, SCABBED AREA, HIATAL HERNIA, SPINAL STENOSIS OF NECK, HX IRREGULAR HEART BEAT, HX ATRIAL FIB.,GONZALEZ'S ESOPHAGUS, OSTEOPOROSIS-HAD CT SCAN DONE LT SHOULDER- SHOWED PULMONARY NODULE 7MM LT UPPER LOBE- PATIENT STATES UNAWARE OF THIS HX OF PULMONARY NODULE History of Any Multi-Drug Resistant Organisms: None Reported Past Surgical History: Appendectomy, Back Surgery, Cardiac Ablation, Heart Catheterization, Hernia Repair, Hysterectomy, Joint Replacement Additional Past Surgical History / Comment(s): LESION REMOVED LEFT LEG, KYLE SHOULDER REPLACEMENT, KYLE CATARACTS, Past Anesthesia/Blood Transfusion Reactions: No Reported Reaction Past Psychological History: No Psychological Hx Reported Smoking Status: Former smoker Past Alcohol Use History: Occasional Past Drug Use History: None Reported - Past Family History Mother Family Medical History: Cancer Additional Family Medical History / Comment(s): BREAST & BONE CA- @ AGE 96 Sister(s) Family Medical History: Cancer Additional Family Medical History / Comment(s): SKIN CA Father Family Medical History: Dementia Additional Family Medical History / Comment(s): alzheimers. at age 92 General Exam Limitations: no limitations General appearance: alert, in no apparent distress Head exam: Present: atraumatic, normocephalic Eye exam: Present: normal appearance, PERRL ENT exam: Present: normal exam Neck exam: Present: normal inspection. Absent: tenderness, meningismus Respiratory exam: Present: normal lung sounds bilaterally. Absent: respiratory distress, wheezes Cardiovascular Exam: Present: regular rate, normal rhythm GI/Abdominal exam: Present: soft. Absent: distended, tenderness, guarding, rebound Extremities exam: Present: normal inspection Back exam: Present: normal inspection. Absent: CVA tenderness (R), CVA tenderness (L) Neurological exam: Present: alert, oriented X3, CN II-XII intact. Absent: motor sensory deficit Psychiatric exam: Present: normal affect, normal mood Course Vital Signs 03/26/20 12:24 Temperature 98.7 F Pulse Rate 71 Respiratory 18 Rate Blood Pressure 139/65 O2 Sat by Pulse 98 Oximetry Medical Decision Making - Medical Decision Making 74-year-old female with urinary frequency and dysuria, urinalysis consistent with UTI Patient has had similar symptoms in the past which were treated with Bactrim, s he has been prescribed Bactrim will follow with her primary care physician. - Lab Data Lab Results 03/26/20 Range/Units 12:32 Urine Color Yellow Urine Appearance Clear (Clear) Urine pH 5.0 (5.0-8.0) Ur Specific [place] 1.018 (1.001-1.035) Urine Protein Negative (Negative) Urine Glucose (UA) Negative (Negative) Urine Ketones Negative (Negative) Urine Blood Moderate H (Negative) Urine Nitrite Negative (Negative) Urine Bilirubin Negative (Negative) Urine Urobilinogen <2.0 (<2.0) mg/dL Ur Leukocyte Esterase Large H (Negative) Urine RBC 42 H (0-5) /hpf Urine WBC 29 H (0-5) /hpf Ur Squamous Epith Cells <1 (0-4) /hpf Urine Bacteria Rare H (None) /hpf Hyaline Casts 1 (0-2) /lpf Urine Mucus Rare H (None) /hpf Disposition Clinical Impression: Urinary tract infection Disposition: HOME SELF-CARE Condition: Good Instructions (If sedation given, give patient instructions): Urinary Tract Infection in Women (ED) Prescriptions: Sulfamethox-Tmp 800-160Mg [Bactrim DS 800-160 mg] 1 tab PO Q12HR #14 tab Is patient prescribed a controlled substance at d/c from ED?: No Referrals: René Geronimo DO [Primary Care Provider] - 1-2 days Time of Disposition: 12:51
[2020-03-26 13:09] LABS: Appearance,Urine Clear (Clear); Bacteria,Urine Rare /hpf; Bilirubin,Urine Negative (Negative); Blood,Urine Moderate (Negative); Color,Urine Yellow; Glucose,Urine (UA) Negative (Negative); Hyaline Casts,Urine 1 /lpf (0-2); Ketones,Urine Negative (Negative); Leukocyte Esterase,Urine Large (Negative); Mucus,Urine Rare /hpf; Nitrite,Urine Negative (Negative); Protein,Urine Negative (Negative); RBC,Urine 42 /hpf (0-5); Specific Gravity,Urine 1.018 (1.001-1.035); Squamous Epithelial Cell,Urine <1 /hpf (0-4); Urobilinogen,Urine <2.0 mg/dL (<2.0); WBC,Urine 29 /hpf (0-5)
== END 2020-03-26 13:15 | disposition home or self-care (01) ==
LOC: EC 12:22
DX: N39.0 Urinary tract infection, site not specified (principal); I10 Essential (primary) hypertension; K22.70 Barrett's esophagus without dysplasia; K21.9 Gastro-esophageal reflux disease without esophagitis; K44.9 Diaphragmatic hernia without obstruction or gangrene; E78.5 Hyperlipidemia, unspecified; Z79.82 Long term (current) use of aspirin; Z79.899 Other long term (current) drug therapy; Z88.8 Allergy status to other drugs, medicaments and biological substances; Z96.611 Presence of right artificial shoulder joint; Z96.612 Presence of left artificial shoulder joint; Z87.891 Personal history of nicotine dependence; Z87.440 Personal history of urinary (tract) infections; Z85.828 Personal history of other malignant neoplasm of skin
CPT/HCPCS: 81001; 87086; 99284

== ENCOUNTER 2020-04-03 20:39 | Emergency (ER) | payer MEDICARE ==
[2020-04-03 20:44] VITALS: BP 140/85; PULSE 70; RESP 18; TEMP 98.7
--- NOTE | 2020-04-03 20:57 | ED ---
Female Urogenital HPI - General Chief complaint: Urogenital Stated complaint: Revisit UTI Time Seen by Provider: 04/03/20 20:53 Source: patient Mode of arrival: ambulatory - History of Present Illness Initial comments: Patient is 74-year-old female presenting to emergency Department with chief complaint of a UTI. Patient states she was here about one week ago and diagnosed with a urinary tract infection. Patient states she was started on Bactrim. States that her symptoms continue to linger. States she continues to have dysuria although at a lesser severity. She reports continuing to have increased urgency or frequency. States she had UTIs before and this feels exactly like it. States typically antibiotics were control for her. She denies any nausea vomiting diarrhea. Denies any hematuria, hematochezia or melena. Denies any vaginal discharge or foul smell. Denies any back pain or flank pain. Denies any night sweats fevers or chills. - Related Data Home Medications Medication Instructions Recorded Confirmed Omeprazole [PriLOSEC] 20 mg PO BID 02/13/14 01/06/18 Aspirin 81 mg PO DAILY 05/04/14 01/06/18 [place]-3 Fatty Acids/Fish Oil [Fish 1 cap PO BID 08/25/14 01/06/18 Oil 1,000 mg Softgel] Pravastatin Sodium [Pravachol] 20 mg PO HS 07/07/16 01/06/18 Lisinopril-Hctz 20-12.5 mg 1 tab PO DAILY 05/08/17 01/06/18 [Zestoretic 20-12.5] Cholecalciferol [Vitamin D3 (25 1,000 unit PO BID 06/14/17 01/06/18 Mcg = 1000 Iu)] Acetaminophen [Tylenol Arthritis] 650 mg PO DAILY PRN 01/06/18 01/06/18 Previous Rx's Medication Instructions Recorded Sulfamethox-Tmp 800-160Mg [Bactrim 1 tab PO Q12HR #14 tab 03/26/20 DS 800-160 mg] Nitrofurantoin Monohyd/M-Cryst 100 mg PO Q12HR #14 cap 04/03/20 [Macrobid] Phenazopyridine [Pyridium] 200 mg PO TID #6 tablet 04/03/20 Allergies Allergy/AdvReac Type Severity Reaction Status Date / Time niacin AdvReac Unknown MUSCLE Verified 04/03/20 20:44 ACHES floracaine Allergy Severe Swelling Uncoded 04/03/20 20:44 OF EYE LIDS FROM DROPS Review of Systems ROS Statement: Those systems with pertinent positive or pertinent negative responses have been documented in the HPI. ROS Other: All systems not noted in ROS Statement are negative. Past Medical History Past Medical History: Atrial Fibrillation, Cancer, GERD/Reflux, Hyperlipidemia, Hypertension Additional Past Medical History / Comment(s): RECENT LEFT LEG SQUAMOUS CELL LESION REMOVED, SCABBED AREA, HIATAL HERNIA, SPINAL STENOSIS OF NECK, HX IRREGULAR HEART BEAT, HX ATRIAL FIB.,GONZALEZ'S ESOPHAGUS, OSTEOPOROSIS-HAD CT SCAN DONE LT SHOULDER- SHOWED PULMONARY NODULE 7MM LT UPPER LOBE- PATIENT STATES UNAWARE OF THIS HX OF PULMONARY NODULE History of Any Multi-Drug Resistant Organisms: None Reported Past Surgical History: Appendectomy, Back Surgery, Cardiac Ablation, Heart Catheterization, Hernia Repair, Hysterectomy, Joint Replacement Additional Past Surgical History / Comment(s): LESION REMOVED LEFT LEG, KYLE SHOULDER REPLACEMENT, KYLE CATARACTS, Past Anesthesia/Blood Transfusion Reactions: No Reported Reaction Past Psychological History: No Psychological Hx Reported Smoking Status: Former smoker Past Alcohol Use History: Occasional Past Drug Use History: None Reported - Past Family History Mother Family Medical History: Cancer Additional Family Medical History / Comment(s): BREAST & BONE CA- @ AGE 96 Sister(s) Family Medical History: Cancer Additional Family Medical History / Comment(s): SKIN CA Father Family Medical History: Dementia Additional Family Medical History / Comment(s): alzheimers. at age 92 General Exam Limitations: no limitations General appearance: alert, in no apparent distress Head exam: Present: atraumatic, normocephalic, normal inspection Eye exam: Present: normal appearance, PERRL, EOMI Pupils: Present: normal accommodation ENT exam: Present: normal exam, normal oropharynx, mucous membranes moist, TM's normal bilaterally, normal external ear exam Neck exam: Present: normal inspection, full ROM. Absent: tenderness Respiratory exam: Present: normal lung sounds bilaterally. Absent: respiratory distress, wheezes, rales Cardiovascular Exam: Present: regular rate, normal rhythm, normal heart sounds GI/Abdominal exam: Present: soft. Absent: distended, tenderness, guarding, rebound Extremities exam: Present: normal inspection, full ROM, normal capillary refill. Absent: tenderness Back exam: Present: normal inspection, full ROM. Absent: tenderness, CVA tenderness (R), CVA tenderness (L) Neurological exam: Present: alert, oriented X3 Psychiatric exam: Present: normal affect, normal mood Skin exam: Present: warm, dry, intact, normal color Course Vital Signs 04/03/20 20:41 Temperature 98.7 F Pulse Rate 70 Respiratory 18 Rate Blood Pressure 140/85 O2 Sat by Pulse 98 Oximetry Medical Decision Making - Medical Decision Making Patient is 74-year-old female presenting to emergency Department with a chief complaint of a UTI. Patient was discharged about one week ago with Bactrim. Patient states she finished a course and continues to have symptoms. On exam no CVA tenderness abdominal pain nausea vomiting. UA shows no signs of urinary checked infection. Urine culture pending. Previous urine culture revealed positive for E. coli which showed sensitivity to Bactrim. There is no improvement in her symptoms. Patient will be started on Rocephin and discharged with a seven-day course of Macrobid. Meanwhile, patient was advised to follow- up with urologist. Patient will also be discharged with her remain. Patient is otherwise nontoxic with stable vitals. Strict return parameters were thoroug hly discussed the patient was under sitting agreeable. Case discussed with physician. - Lab Data Lab Results 04/03/20 Range/Units 21:10 Urine Color Light Yellow Urine Appearance Clear (Clear) Urine pH 5.5 (5.0-8.0) Ur Specific [place] 1.016 (1.001-1.035) Urine Protein Negative (Negative) Urine Glucose (UA) Negative (Negative) Urine Ketones Negative (Negative) Urine Blood Negative (Negative) Urine Nitrite Negative (Negative) Urine Bilirubin Negative (Negative) Urine Urobilinogen <2.0 (<2.0) mg/dL Ur Leukocyte Esterase Negative (Negative) Disposition Clinical Impression: Cystitis Disposition: HOME SELF-CARE Condition: Stable Instructions (If sedation given, give patient instructions): Urinary Tract Infection in Women (ED) Additional Instructions: Take prescribed medication as directed. Follow-up with a urologist. Return to emergency department if symptoms worsen. Prescriptions: Nitrofurantoin Monohyd/M-Cryst [Macrobid] 100 mg PO Q12HR #14 cap Phenazopyridine [Pyridium] 200 mg PO TID #6 tablet Is patient prescribed a controlled substance at d/c from ED?: No Referrals: Rashaun Morris MD [STAFF PHYSICIAN] - 1-2 days René Geronimo DO [Primary Care Provider] - 1-2 days Time of Disposition: 22:03
[2020-04-03] MEDS ORDERED: SODIUM CHLORIDE 0.9% 1,000 ML IV ONE (21:03)
[2020-04-03 21:34] LABS: Appearance,Urine Clear (Clear); Bilirubin,Urine Negative (Negative); Blood,Urine Negative (Negative); Color,Urine Light Yellow; Glucose,Urine (UA) Negative (Negative); Ketones,Urine Negative (Negative); Leukocyte Esterase,Urine Negative (Negative); Nitrite,Urine Negative (Negative); PH, Urine 5.5 (5.0-8.0); Protein,Urine Negative (Negative); Specific Gravity,Urine 1.016 (1.001-1.035); Urobilinogen,Urine <2.0 mg/dL (<2.0)
[2020-04-03] MEDS ORDERED: cefTRIAXone 1,000 MG VIAL (IM USE) IM STA (22:02)
== END 2020-04-03 22:13 | disposition home or self-care (01) ==
LOC: EC 20:39
DX: N30.90 Cystitis, unspecified without hematuria (principal); B96.20 Unspecified Escherichia coli [E. coli] as the cause of diseases classified elsewhere; I10 Essential (primary) hypertension; K22.70 Barrett's esophagus without dysplasia; K44.9 Diaphragmatic hernia without obstruction or gangrene; K21.9 Gastro-esophageal reflux disease without esophagitis; E78.5 Hyperlipidemia, unspecified; Z79.82 Long term (current) use of aspirin; Z79.899 Other long term (current) drug therapy; Z88.8 Allergy status to other drugs, medicaments and biological substances; Z91.09 Other allergy status, other than to drugs and biological substances; Z85.828 Personal history of other malignant neoplasm of skin; Z96.612 Presence of left artificial shoulder joint; Z87.891 Personal history of nicotine dependence; Z96.611 Presence of right artificial shoulder joint
CPT/HCPCS: 81003; 87086; 99283; 96372; J0696

== ENCOUNTER 2020-09-24 07:43 | Day surgery (SDC) | payer MEDICARE ==
[2020-09-18 11:16] VITALS: BMI 27.1
[~2020-09-24 07:43] MED LIST: ALPRAZolam 0.25 MG TAB PO PRN; ALPRAZolam 0.5 MG TAB PO PRN; ASPIRIN 325 MG TAB PO ONE; ATORVASTATIN 80 MG TAB PO ONE; NITROGLYCERIN SL TABS 0.4 MG TAB SUBLINGUAL PRN; SODIUM CHLORIDE 0.9% 1,000 ML in EMPTY BAG 1 BAG IV ONE
[2020-09-24] MEDS ORDERED: SODIUM CHLORIDE 0.9% 1,000 ML IV ONE (08:05)
[2020-09-24 08:35] LABS: Basophils # (A) 0.1 k/uL (0-0.2); Basophils % (A) 1 %; Eosinophils # (A) 0.1 k/uL (0-0.7); Eosinophils % (A) 2 %; HCT 41.3 % (34.0-46.0); HGB 13.9 gm/dL (11.4-16.0); Lymphocytes # (A) 1.9 k/uL (1.0-4.8); Lymphocytes % (A) 40 %; MCH 30.8 pg (25.0-35.0); MCHC 33.7 g/dL (31.0-37.0); MCV 91.3 fL (80.0-100.0); Mean Platelet Volume 7.1; Monocytes # (A) 0.5 k/uL (0-1.0); Monocytes % (A) 10 %; Neutrophils # (A) 2.1 k/uL (1.3-7.7); Neutrophils % (A) 44 %; Platelet Count 249 k/uL (150-450); RBC 4.52 m/uL (3.80-5.40); RDW 12.6 % (11.5-15.5); WBC 4.8 k/uL (3.8-10.6)
[2020-09-24 08:38] VITALS: RESP 16; TEMP 97.9
[2020-09-24 08:56] LABS: Calcium 10.7 mg/dL (8.4-10.2); Potassium 5.3 mmol/L (3.5-5.1)
[2020-09-24] MEDS ORDERED: VERAPAMIL 2.5 MG/ML 2 ML AMP ONE (09:27)
[2020-09-24] MEDS ORDERED: fentaNYL (PF) 50 MCG/ML 2 ML AMP ONE (09:27)
[2020-09-24] MEDS ORDERED: LIDOCAINE 1% INJ 10MG/ML (20 ML MDV) ONE (09:28)
[2020-09-24] MEDS ORDERED: fentaNYL (PF) 50 MCG/ML 2 ML AMP IV ONE (09:36)
[2020-09-24] MEDS ORDERED: MIDAZOLAM 2 MG/2 ML VIAL IV ONE (09:36)
[2020-09-24] MEDS ORDERED: LIDOCAINE 1% INJ 10MG/ML (20 ML MDV) SQ ONE (09:38)
[2020-09-24] MEDS ORDERED: VERAPAMIL SYRINGE (5 MG/10 ML) INTRAARTER ONE (09:40)
[2020-09-24] MEDS ORDERED: HEPARIN SODIUM 1,000 UN/ML (10ML VL) ONE (09:41)
[2020-09-24] MEDS ORDERED: IOPAMIDOL-370 125ML BTL INJ ONE (09:54)
[2020-09-24] MEDS ORDERED: RX INFO: IV CONTRAST WAS GIVEN 1 EACH MISC MISCELLANE PRN (10:04)
--- NOTE | 2020-09-24 10:09 | P.CARDCATH ---
Date of Procedure: 09/24/20 Preoperative Diagnosis: Positive stress test chest pain and shortness of breath Postoperative Diagnosis: Calcification of the right coronary artery without any clinically significant stenosis Procedure(s) Performed: Left heart catheterization with left ventriculography Description of Procedure: HISTORY: This is a 75-year-old female with history of hypertension and hypercholesterolemia was been complaining of exertional shortness of breath and some chest pain. He had a nuclear stress test which was size to possible ischemia in the inferoapical segments. She is advised to have a cardiac catheterization by Dr. Leblanc CONSENT:I have discussed the risks, benefits and alternative therapies for the above-mentioned procedure and for both sedation/analgesia as well as necessary blood product administration, if indicated, as they pertain to this patient. The patient has indicated understanding and acceptance of the risks and procedures discussed. PROCEDURE: Patient was brought to the lab in a fasting state. Patient was given some IV sedation. The right wrist is infiltrated with lidocaine and right femoral artery was entered using Seldinger technique. A 6-Danish catheter was left in place and selective coronary arteriography and left ventriculography was performed. Patient tolerated the procedure well. RI been was applied for hemostasis. No immediate complications were noted and patient was transferred to [facility] in a stable condition Conscious Sedation: Versed 1mg Fentanyl 25 g Duration 18minutes HEMODYNAMICS: Aortic pressure is about 130/70. Left ankle end-diastolic pressure is 8-12. There was no gradient across the aortic valve SELECTIVE CORONARY ARTERIOGRAPHY: [] LEFT MAIN: Normal length and and free of occlusive disease THE LEFT ANTERIOR DESCENDING CORONARY ARTERY: . Good caliber vessel, giving rise to diagonal septal branches and wraps around the apex. Free of any occlusive disease THE LEFT CIRCUMFLEX AND IS CORONARY ARTERY: Nondominant vessel with minimal disease distally THE RIGHT CORONARY ARTERY: Dominant vessel giving rise good-sized PDA and PLV. Has calcification in the proximal to mid segment which is focal. No significant obstructive disease noted LEFT VENTRICULOGRAPHY: This revealed normal-sized cardiac silhouette with good systolic function. No significant mitral regurgitation noted FINAL IMPRESSION: , Mild coronary artery disease with calcification of the right coronary artery which is focal in the proximal to mid segment. Otherwise no si gnificant obstructive disease noted PLAN: Maximum medical therapy and this factor modification PROGNOSIS: Good
[2020-09-24] MEDS ORDERED: SODIUM CHLORIDE 0.9% 1,000 ML IV SCH (10:15)
[2020-09-24 15:31] VITALS: BP 121/58; PULSE 64
== END 2020-09-24 15:07 | disposition home or self-care (01) ==
LOC: CATHCVL 07:43
PROVIDERS: ATTEND Internal Medicine Cardiovascular Disease
DX: I25.10 Atherosclerotic heart disease of native coronary artery without angina pectoris (principal); I25.84 Coronary atherosclerosis due to calcified coronary lesion; I10 Essential (primary) hypertension; E78.5 Hyperlipidemia, unspecified; E78.00 Pure hypercholesterolemia, unspecified; I49.3 Ventricular premature depolarization; I65.23 Occlusion and stenosis of bilateral carotid arteries; G89.29 Other chronic pain; M54.9 Dorsalgia, unspecified; R94.39 Abnormal result of other cardiovascular function study; R93.1 Abnormal findings on diagnostic imaging of heart and coronary circulation; Q24.5 Malformation of coronary vessels; Z79.82 Long term (current) use of aspirin; Z79.899 Other long term (current) drug therapy; Z88.8 Allergy status to other drugs, medicaments and biological substances
CPT/HCPCS: 93458; 80048; 85025; C1769 ×2; C1894; J2250; J2001; J3010; J1644; Q9967

== ENCOUNTER → 2021-01-07 | Outpatient (CLI) | payer MEDICARE ==
--- NOTE | 2021-01-08 10:06 | MM ---
Reason for exam: screening (asymptomatic). Last mammogram was performed 1 year ago. History: Patient is postmenopausal, history of other cancer, and is nulliparous. Family history of breast cancer in mother at age 66 and breast cancer in maternal cousin at age 65. Physical Findings: A clinical breast exam by your physician is recommended on an annual basis and results should be correlated with mammographic findings. MG 3D Screening Mammo W/Cad Bilateral CC and MLO view(s) were taken. Prior study comparison: January 06, 2020, bilateral MG 3d screening mammo w/cad. March 31, 2019, left breast MG 3d diag mammo w/cad LT. The breast tissue is heterogeneously dense. This may lower the sensitivity of mammography. Bilateral scattered asymmetries and calcifications. No change. ASSESSMENT: Benign, BI-RAD 2 RECOMMENDATION: Routine screening mammogram of both breasts in 1 year. PAVAND
== END | disposition home or self-care (01) ==
LOC: RADMAMWWP 10:59
PROVIDERS: ATTEND Family Medicine
DX: Z12.31 Encounter for screening mammogram for malignant neoplasm of breast (principal); Z78.0 Asymptomatic menopausal state; Z80.3 Family history of malignant neoplasm of breast
CPT/HCPCS: 77063; 77067

== ENCOUNTER 2021-01-23 10:43 | Day surgery (SDC) | payer MEDICARE ==
[2021-01-18 13:32] VITALS: BMI 27.3
[~2021-01-23 10:43] MED LIST changes: -ALPRAZolam 0.25 MG TAB PO PRN; -ALPRAZolam 0.5 MG TAB PO PRN; -ASPIRIN 325 MG TAB PO ONE; -ATORVASTATIN 80 MG TAB PO ONE; +LACTATED RINGERS 1,000 ML IV SCH; +LIDOCAINE 1% (10MG/ML) FOR IV START INTRADERMA PRN; -NITROGLYCERIN SL TABS 0.4 MG TAB SUBLINGUAL PRN; -SODIUM CHLORIDE 0.9% 1,000 ML in EMPTY BAG 1 BAG IV ONE
[2021-01-23 11:14] VITALS: RESP 16; TEMP 97.6
[2021-01-23] MEDS ORDERED: PROPOFOL 10 MG/ML 20 ML VIAL IV ONE (11:21)
[2021-01-23] MEDS ORDERED: LIDOCAINE 1% INJ 10MG/ML (20 ML MDV) ONE (11:21)
--- NOTE | 2021-01-23 11:43 | P.PCN ---
Date of Procedure: 01/23/21 Procedure(s) Performed: Brief history: Patient is a pleasant 75-year-old white female scheduled for an elective upper endoscopy as well as colonoscopy as a part of evaluation of GERD/Holt's esophagus and history of colon polyps Procedure performed: Esophagogastroduodenoscopy with biopsy Colonoscopy with biopsy Preoperative diagnosis: GERD/Holt's esophagus and history of colon polyps Anesthesia: [facility] [place] Procedure: After informed consent was obtained from the patient was brought into the endoscopy unit and IV sedation was administered by anesthesia under continuous monitoring. Initially upper endoscopy was done. The Olympus GF 160 video endoscope was inserted inserted into the mouth and esophagus intubated without any difficulty and was gradually advanced into the stomach and duodenum and carefully examined. The bulb and second part of the duodenum appeared normal. The scope was then withdrawn into the stomach adequately insufflated with air and upon careful examination the antrum appeared normal. In the body the stomach there were small gastric polyps which were biopsied. Rest of the body, cardia and fundus appeared normal. The scope was then withdrawn into the esophagus. The GE junction was located at 34 cm to the incisors. Small hiatal hernia noted. It appeared regular with Segment of Holt's esophagus that was biopsied. Rest of the esophagus appeared normal. Patient tolerated the procedure well. At this time the patient continued to remain sedation. Initial digital rectal examination was normal. Olympus CF 160 video colonoscope was then inserted into the rectum and gradually advanced to the cecum without any difficulty. Careful examination was performed as the scope was gradually being withdrawn. The prep was excellent. The cecum, ascending colon, transverse colon, descending colon, sigmoid colon and rectum appeared normal. In the distal rectum there was a 3 mm polyp that was removed by cold biopsy. Scattered sigmoid diverticulosis seen. Retroflexion was performed in the rectum and no lesions were noted. Patient tolerated the procedure well. Impression: 1. Upper endoscopy revealed small hiatal hernia, short segment Holt's esophagus and gastric polyps. 2. Colonoscopy revealed scattered sigmoid diverticulosis and a 3 mm rectal polyp status post biopsy Recommendations: Findings of this examination were discussed with the patient as well as her family. She was advised to follow with the biopsy results. If the biopsy shows an adenoma she can have a repeat colonoscopy in 5 years.
[2021-01-23 12:08] VITALS: BP 116/55; PULSE 55
== END 2021-01-23 12:25 | disposition home or self-care (01) ==
LOC: ORWHC2ENDO 10:43
PROVIDERS: ATTEND Internal Medicine Gastroenterology
DX: K22.70 Barrett's esophagus without dysplasia (principal); K31.7 Polyp of stomach and duodenum; K44.9 Diaphragmatic hernia without obstruction or gangrene; K57.30 Diverticulosis of large intestine without perforation or abscess without bleeding; D12.8 Benign neoplasm of rectum; E78.5 Hyperlipidemia, unspecified; Z86.010 Personal history of colon polyps; Z98.890 Other specified postprocedural states; Z79.82 Long term (current) use of aspirin
CPT/HCPCS: 88305; 45380; 43239; J2001; J2704

== ENCOUNTER → 2022-01-23 | Outpatient (CLI) | payer MEDICARE ==
--- NOTE | 2022-01-24 18:04 | MM ---
Reason for Exam: Screening (asymptomatic). Last mammogram was performed 1 year(s) and 1 month(s) ago. Patient History: Menarche at age 11. Patient has no children. Left ovary removed at age 36. Right ovary removed at age 36. Hysterectomy at age 36. Postmenopausal. Other cancer. Maternal cousin had breast cancer, age 65. Mother had breast cancer, age 66. Risk Values: [place] 5 year model risk: 3.4%. NCI Lifetime model risk: 6.5%. Prior Study Comparison: 03/31/2019 Left Diagnostic Mammogram, [facility]. 01/06/2020 Bilateral Screening Mammogram, [facility]. 01/07/2021 Bilateral Screening Mammogram, [facility]. Tissue Density: The breast tissue is heterogeneously dense. This may lower the sensitivity of mammography. Findings: Analyzed By CAD. Scattered benign secretory calcifications. Chronic nodularity lateral right breast. Central asymmetric density left cc view at a middle depth is more defined and incompletely disperses on 3-D images. Further evaluation recommended. Overall Assessment: Incomplete: need additional imaging evaluation, BI-RAD 0 Management: Special View Mammogram of the left breast. 1. Additional views left breast to include spot 3-D CC, 3-D CC rolled medial, and 3-D ML views. 2. Targeted left breast ultrasound if any persisting abnormality. Electronically signed and approved by: Jodi Stock M.D. Radiologist
== END | disposition home or self-care (01) ==
LOC: RADMAMWWP 13:31
PROVIDERS: ATTEND Family Medicine
DX: Z12.31 Encounter for screening mammogram for malignant neoplasm of breast (principal); Z78.0 Asymptomatic menopausal state; Z80.3 Family history of malignant neoplasm of breast
CPT/HCPCS: 77063; 77067

== ENCOUNTER → 2022-01-28 | Outpatient (CLI) | payer MEDICARE ==
--- NOTE | 2022-01-28 09:26 | MM ---
Reason for Exam: Additional evaluation requested from abnormal screening. Last screening mammogram was performed less than 1 month ago. Patient History: Menarche at age 11. Patient has no children. Left ovary removed at age 36. Right ovary removed at age 36. Hysterectomy at age 36. Postmenopausal. Other cancer. Maternal cousin had breast cancer, age 65. Mother had breast cancer, age 66. Risk Values: Holly 5 year model risk: 3.4%. NCI Lifetime model risk: 6.5%. Prior Study Comparison: 01/06/2020 Bilateral Screening Mammogram, [facility]. 01/07/2021 Bilateral Screening Mammogram, [facility]. 01/23/2022 Bilateral MG 3D screening mammo w/cad, [facility]. Tissue Density: Left: The breast tissue is heterogeneously dense. This may lower the sensitivity of mammography. Findings: Analyzed By CAD. Mammogram Asymmetric density left breast at the glandular retroglandular junction persists although in retrospect may been present in 2019. Ultrasound is advised.. Technique: Method: Targeted. Findings: The upper section of the breast of the left breast was scanned. No significant changes when compared with prior studies. No solid or cystic masses identified. Overall Assessment: Probably benign, BI-RAD 3 Assessment: MG 3D work up w/cad LT - Left: Incomplete: need additional imaging evaluation, BI-RAD 0. US breast workup limited LT - Left: Probably benign, BI-RAD 3. Management: Diagnostic Mammogram of the left breast in 6 months. A clinical breast exam by your physician is recommended on an annual basis and results should be correlated with mammographic findings. Results were given to the patient verbally at the time of exam. Electronically signed and approved by: Ranjan Arriaga M.D. Radiologis
== END | disposition home or self-care (01) ==
LOC: RADMAMWWP 08:31
PROVIDERS: ATTEND Family Medicine
DX: R92.8 Other abnormal and inconclusive findings on diagnostic imaging of breast (principal); Z78.0 Asymptomatic menopausal state; Z80.3 Family history of malignant neoplasm of breast
CPT/HCPCS: 77065; 76642; G0279; 77061

== ENCOUNTER → 2022-07-28 | Outpatient (CLI) | payer MEDICARE, OTHER ==
--- NOTE | 2022-07-28 10:46 | MM ---
Reason for Exam: Follow-up at short interval from prior study. Last screening mammogram was performed 6 month(s) ago. Patient History: Menarche at age 11. Patient has no children. Left ovary removed at age 36. Right ovary removed at age 36. Hysterectomy at age 36. Postmenopausal. Other cancer. Maternal cousin had breast cancer, age 65. Mother had breast cancer, age 66. Risk Values: Holly 5 year model risk: 3.4%. NCI Lifetime model risk: 6.0%. Prior Study Comparison: 01/07/2021 Bilateral Screening Mammogram, [facility]. 01/23/2022 Bilateral MG 3D screening mammo w/cad, [facility]. 01/28/2022 Left MG 3D work up w/cad , [facility]. Tissue Density: Left: The breast tissue is heterogeneously dense. This may lower the sensitivity of mammography. Findings: Analyzed By CAD. Biopsy clip in the left breast is redemonstrated. There are regional benign appearing linear and round and Calcifications in the left breast redemonstrated. Benign-appearing left axillary lymph nodes are redemonstrated. No suspicious new mass or distortion in the left breast. Overall Assessment: Benign, BI-RAD 2 Management: Screening Mammogram of both breasts in 6 months. Back on annual schedule. Results were given to the patient verbally at the time of exam. Electronically signed and approved by: Edison Bhardwaj M.D.
== END | disposition home or self-care (01) ==
LOC: RADMAMWWP 10:06
PROVIDERS: ATTEND Family Medicine
DX: R92.8 Other abnormal and inconclusive findings on diagnostic imaging of breast (principal); Z78.0 Asymptomatic menopausal state; Z80.3 Family history of malignant neoplasm of breast
CPT/HCPCS: 77065; G0279; 77061

== ENCOUNTER 2022-12-04 09:58 | Observation (INO) | payer MEDICARE, OTHER ==
[2022-12-04] MEDS ORDERED: NITROGLYCERIN SL TABS 0.4 MG TAB SUBLINGUAL STA ×3 (10:11)
[2022-12-04] MEDS ORDERED: ASPIRIN 81 MG PO STA (10:11)
--- NOTE | 2022-12-04 10:14 | ED ---
General Adult HPI - General Chief complaint: Back Pain/Injury Stated complaint: pain in mid back, burn chest Time Seen by Provider: 12/04/22 10:06 Source: patient, RN notes reviewed Mode of arrival: ambulatory Limitations: no limitations - History of Present Illness Initial comments: Patient is a pleasant 77-year-old female presenting to the emergency Department with chest and upper back pain. Onset of symptoms was yesterday afternoon/evening. Patient has burning in her mid upper back with radiation to the chest. This also feels like burning in the chest. Patient states symptoms have mostly been steady. Discomfort is currently 45/10. Patient does get associated dyspnea, mild. Patient has been sweaty a few times. No nausea. No history of similar symptoms previously. Patient was not exerting herself at onset. Patient was not eating prior to onset. - Related Data Home Medications Medication Instructions Recorded Confirmed Omeprazole [PriLOSEC] 20 mg PO QAM 02/13/14 01/18/21 Aspirin 81 mg PO DAILY 05/04/14 01/18/21 [place]-3 Fatty Acids/Fish Oil [Fish 1 cap PO BID 08/25/14 01/18/21 Oil 1,000 mg Softgel] Pravastatin Sodium [Pravachol] 20 mg PO HS 07/07/16 01/18/21 Cholecalciferol [Vitamin D3 (25 1,000 unit PO QAM 06/14/17 01/18/21 Mcg = 1000 Iu)] Acetaminophen [Tylenol Arthritis] 650 mg PO DAILY PRN 01/06/18 01/18/21 Allergies Allergy/AdvReac Type Severity Reaction Status Date / Time niacin AdvReac Unknown MUSCLE Verified 12/04/22 10:04 ACHES floracaine Allergy Severe Swelling Uncoded 12/04/22 10:04 OF EYE LIDS FROM DROPS Review of Systems ROS Statement: Those systems with pertinent positive or pertinent negative responses have been documented in the HPI. ROS Other: All systems not noted in ROS Statement are negative. Constitutional: Denies: fever Eyes: Denies: eye pain ENT: Denies: ear pain Respiratory: Reports: as per HPI. Denies: cough Cardiovascular: Reports: as per HPI, chest pain Endocrine: Denies: fatigue Gastrointestinal: Denies: abdominal pain, nausea, vomiting Genitourinary: Denies: dysuria Musculoskeletal: Reports: as per HPI, back pain Skin: Denies: rash Neurological: Denies: weakness Past Medical History Past Medical History: Atrial Fibrillation, Cancer, GERD/Reflux, Hyperlipidemia, Hypertension Additional Past Medical History / Comment(s): RECENT LEFT LEG SQUAMOUS CELL LE LADY REMOVED, SCABBED AREA, HIATAL HERNIA, SPINAL STENOSIS OF NECK, HX IRREGULAR HEART BEAT, HX ATRIAL FIB.,GONZALEZ'S ESOPHAGUS, OSTEOPOROSIS-HAD CT SCAN DONE LT SHOULDER- SHOWED PULMONARY NODULE 7MM LT UPPER LOBE- PATIENT STATES UNAWARE OF THIS HX OF PULMONARY NODULE History of Any Multi-Drug Resistant Organisms: None Reported Past Surgical History: Appendectomy, Back Surgery, Cardiac Ablation, Heart Catheterization, Hernia Repair, Hysterectomy, Joint Replacement, Tonsillectomy Additional Past Surgical History / Comment(s): LESION REMOVED LEFT LEG, KYLE SHOULDER REPLACEMENT, KYLE CATARACTS, skin cancer removed from face, Past Anesthesia/Blood Transfusion Reactions: No Reported Reaction Past Psychological History: No Psychological Hx Reported Smoking Status: Former smoker - Past Family History Mother Family Medical History: Cancer Additional Family Medical History / Comment(s): BREAST & BONE CA- @ AGE 96 Sister(s) Family Medical History: Cancer Additional Family Medical History / Comment(s): SKIN CA Father Family Medical History: Dementia Additional Family Medical History / Comment(s): alzheimers. at age 92 General Exam Limitations: no limitations General appearance: alert, in no apparent distress Head exam: Present: normocephalic Eye exam: Present: normal appearance Neck exam: Present: normal inspection Respiratory exam: Present: normal lung sounds bilaterally. Absent: chest wall tenderness Cardiovascular Exam: Present: regular rate, normal rhythm, normal heart sounds Expanded Peripheral pulses: 2+: Radial (R), Radial (L), Posterior Tibialis (R), Posterior Tibialis (L) GI/Abdominal exam: Present: soft. Absent: tenderness Extremities exam: Present: normal inspection. Absent: pedal edema, calf tenderness Neurological exam: Present: alert Psychiatric exam: Present: normal affect, normal mood Skin exam: Present: normal color Course Vital Signs 12/04/22 12/04/22 10:01 12:40 Temperature 98.2 F Pulse Rate 62 53 L Respiratory 18 18 Rate Blood Pressure 140/69 134/67 O2 Sat by Pulse 99 97 Oximetry EKG Findings - EKG Results: EKG: interpreted by ERMD (Left axis), sinus rhythm, normal QRS, normal ST/T Medical Decision Making - Medical Decision Making Was pt. sent in by a medical professional or institution (, [place], [facility], urgent care, hospital, or senior care...) When possible be specific @ -Patient was sent by her provider Did you speak to anyone other than the patient for history (EMS, parent, family, police, friend...)? What history was obtained from this source @ -No Did you review nursing and triage notes (agree or disagree)? Why? @ -I reviewed and agree with nursing and triage notes Were old charts reviewed (outside hosp., previous admission, EMS record, old EKG, old radiological studies, urgent care reports/EKG's, senior care records)? Report findings @ -No old charts were reviewed Differential Diagnosis (chest pain, altered mental status, abdominal pain women, abdominal pain men, vaginal bleeding, weakness, fever, dyspnea, syncope, headache, dizziness, GI bleed, back pain, seizure, CVA, palpatations, mental health)? @ -Differential Chest Pain: Stable Angina, Unstable Angina, STEMI, NSTEMI Aortic Dissection, Pneumothorax, Musculoskeletal, Esophageal Spasm GERD, Cholecystitis, Pancreatitis, Zoster, this is not meant to be an all-inclusive list. EKG interpreted by me (3pts min.). @ -As above X-rays interpreted by me (1pt min.). @ -Chest x-ray reveals no acute process CT interpreted by me (1pt min.). @ -Report reviewed U/S interpreted by me (1pt. min.). @ -None done What testing was considered but not performed or refused? (CT, X-rays, U/S, labs)? Why? @ -None What meds were considered but not given or refused? Why? @ -None Did you discuss the management of the patient with other professionals (professionals i.e. , [facility], [employer], lab, RT, psych nurse, social science research assistant, derrick builder, teacher, senior officer, manager of case)? Give summary @ -Case was discussed with [facility] physician, Dr. Payne who will admit for Dr. Ely me Was smoking cessation discussed for >3mins.? @ -No Was critical care preformed (if so, how long)? @ -No Were there social determinants of health that impacted care today? How? (Homelessness, low income, unemployed, alcoholism, drug addiction, transportation, low edu. Level, literacy, decrease access to med. care, assisted, rehab)? @ -No Was there de-escalation of care discussed even if they declined (Discuss DNR or withdrawal of care, Hospice)? DNR status @ -No What co-morbidities impacted this encounter? (DM, HTN, Smoking, COPD, CAD, Cancer, CVA, ARF, Chemo, Hep., AIDS, mental health diagnosis, sleep apnea, morbid obesity)? @ -None Was patient admitted / discharged? Hospital course, mention meds given and route, prescriptions, significant lab abnormalities, going to OR and other pertinent info. @ -Patient reevaluated and resting comfortably in bed, in terms improved at this point. Patient updated on results and plan. Patient will be admitted with repeat testing and cardiac eval Undiagnosed new problem with uncertain prognosis? @ -No Drug Therapy requiring intensive monitoring for toxicity (Heparin, Nitro, Insulin, Cardizem)? @ -No Were any procedures done? @ -No Diagnosis/symptom? @ -Chest pain Acute, or Chronic, or Acute on Chronic? @ -Acute Uncomplicated (without systemic symptoms) or Complicated (systemic symptoms)? @ -default Side effects of treatment? @ -No Exacerbation, Progression, or Severe Exacerbation? @ -No Poses a threat to life or bodily function? How? (Chest pain, [place], [place], pneumonia, PE, COPD, DKA, ARF, appy, cholecystitis, CVA, Diverticulitis, Homicidal, Suicid al, threat to staff... and all critical care pts) @ -No - Lab Data Result diagrams: 12/04/22 11:04 12/04/22 11:04 Lab Results 12/04/22 12/04/22 12/04/22 Range/Units 11:04 11:04 11:04 WBC 5.0 (3.8-10.6) k/uL RBC 4.55 (3.80-5.40) m/uL Hgb 13.7 (11.4-16.0) gm/dL Hct 41.3 (34.0-46.0) % MCV 90.8 (80.0-100.0) fL MCH 30.2 (25.0-35.0) pg MCHC 33.2 (31.0-37.0) g/dL RDW 13.0 (11.5-15.5) % Plt Count 220 (150-450) k/uL MPV 7.6 Neutrophils % 60 % Lymphocytes % 28 % Monocytes % 7 % Eosinophils % 1 % Basophils % 1 % Neutrophils # 3.0 (1.3-7.7) k/uL Lymphocytes # 1.4 (1.0-4.8) k/uL Monocytes # 0.4 (0-1.0) k/uL Eosinophils # 0.1 (0-0.7) k/uL Basophils # 0.0 (0-0.2) k/uL PT 9.8 (9.0-12.0) sec INR 0.9 (<1.2) APTT 28.3 (22.0-30.0) sec D-Dimer 1.48 H (<0.60) mg/L FEU Sodium 140 (137-145) mmol/L Potassium 4.1 (3.5-5.1) mmol/L Chloride 99 (98-107) mmol/L Carbon Dioxide 29 (22-30) mmol/L Anion Gap 12 mmol/L BUN 21 H (7-17) mg/dL Creatinine 0.84 (0.52-1.04) mg/dL Est GFR (CKD-EPI)AfAm 77 (>60 ml/min/1.73 sqM) Est GFR (CKD-EPI)NonAf 67 (>60 ml/min/1.73 sqM) Glucose 115 H (74-99) mg/dL Calcium 10.0 (8.4-10.2) mg/dL Magnesium 2.1 (1.6-2.3) mg/dL Total Bilirubin 0.7 (0.2-1.3) mg/dL AST 26 (14-36) U/L ALT 23 (4-34) U/L Alkaline Phosphatase 64 (38-126) U/L Troponin I (0.000-0.034) ng/mL NT-Pro-B Natriuret Pep pg/mL Total Protein 7.8 (6.3-8.2) g/dL Albumin 4.7 (3.5-5.0) g/dL Amylase 69 (30-110) U/L Lipase 146 (23-300) U/L 12/04/22 12/04/22 Range/Units 11:04 11:04 WBC (3.8-10.6) k/uL RBC (3.80-5.40) m/uL Hgb (11.4-16.0) gm/dL Hct (34.0-46.0) % MCV (80.0-100.0) fL MCH (25.0-35.0) pg MCHC (31.0-37.0) g/dL RDW (11.5-15.5) % Plt Count (150-450) k/uL MPV Neutrophils % % Lymphocytes % % Monocytes % % Eosinophils % % Basophils % % Neutrophils # (1.3-7.7) k/uL Lymphocytes # (1.0-4.8) k/uL Monocytes # (0-1.0) k/uL Eosinophils # (0-0.7) k/uL Basophils # (0-0.2) k/uL PT (9.0-12.0) sec INR (<1.2) APTT (22.0-30.0) sec D-Dimer (<0.60) mg/L FEU Sodium (137-145) mmol/L Potassium (3.5-5.1) mmol/L Chloride (98-107) mmol/L Carbon Dioxide (22-30) mmol/L Anion Gap mmol/L BUN (7-17) mg/dL Creatinine (0.52-1.04) mg/dL Est GFR (CKD-EPI)AfAm (>60 ml/min/1.73 sqM) Est GFR (CKD-EPI)NonAf (>60 ml/min/1.73 sqM) Glucose (74-99) mg/dL Calcium (8.4-10.2) mg/dL Magnesium (1.6-2.3) mg/dL Total Bilirubin (0.2-1.3) mg/dL AST (14-36) U/L ALT (4-34) U/L Alkaline Phosphatase (38-126) U/L Troponin I <0.012 (0.000-0.034) ng/mL NT-Pro-B Natriuret Pep 136 pg/mL Total Protein (6.3-8.2) g/dL Albumin (3.5-5.0) g/dL Amylase (30-110) U/L Lipase (23-300) U/L Disposition Clinical Impression: Chest pain Disposition: ADMITTED IP TO THIS HOSP Is patient prescribed a controlled substance at d/c from ED?: No Referrals: René Geronimo DO [Primary Care Provider] - 1-2 days Time of Disposition: 15:12
[2022-12-04 11:23] LABS: Albumin 4.7 g/dL (3.5-5.0); Magnesium 2.1 mg/dL (1.6-2.3); Potassium 4.1 mmol/L (3.5-5.1); Total Bilirubin 0.7 mg/dL (0.2-1.3); Total Protein 7.8 g/dL (6.3-8.2)
[2022-12-04 11:30] LABS: INR 0.9 (<1.2); Partial Thromboplastin Time 28.3 sec (22.0-30.0); Prothrombin Time 9.8 sec (9.0-12.0)
[2022-12-04 11:32] LABS: Basophils % (A) 1 %; Eosinophils # (A) 0.1 k/uL (0-0.7); Eosinophils % (A) 1 %; HCT 41.3 % (34.0-46.0); HGB 13.7 gm/dL (11.4-16.0); Lymphocytes # (A) 1.4 k/uL (1.0-4.8); Lymphocytes % (A) 28 %; MCH 30.2 pg (25.0-35.0); MCHC 33.2 g/dL (31.0-37.0); MCV 90.8 fL (80.0-100.0); Mean Platelet Volume 7.6; Monocytes # (A) 0.4 k/uL (0-1.0); Monocytes % (A) 7 %; Neutrophils % (A) 60 %; Platelet Count 220 k/uL (150-450); RBC 4.55 m/uL (3.80-5.40)
--- NOTE | 2022-12-04 11:39 | XR ---
EXAMINATION TYPE: XR chest 2V DATE OF EXAM: 12/04/2022 COMPARISON: 01/06/2018 HISTORY: 77-year-old female with chest pain and back pain TECHNIQUE: PA and lateral views FINDINGS: Heart normal size. Aorta and pulmonary vasculature within normal limits. Hyperinflation. No consolida tion or pleural effusion. Moderate degenerative disc disease midthoracic spine. Bilateral total shoul vashti arthroplasties. IMPRESSION: COPD. No acute cardiopulmonary process.
--- NOTE | 2022-12-04 15:09 | CT ---
EXAMINATION TYPE: CT angio thor/abd pel aorta DATE OF EXAM: 12/04/2022 COMPARISON: None HISTORY: Chest and back pain CT DLP: 1608.2 mGycm Automated exposure control for dose reduction was used. Contrast: None Technique: Axial images 2 mm thick sections. Pre and postcontrast imaging was performed. Timing of th e contrast to maximize through the aorta which may cause some additional limitation. FINDINGS: Ascending thoracic aorta at the main pulmonary artery is 3.6 cm. Main pulmonary artery the bifurcatio n is 2.4 cm. Coronary artery calcification is noted. Heart size is normal. Small hiatal hernia may be present. Liver spleen and pancreas are unremarkable. Adrenal gland on the left is somewhat thickened measuring 1.3 cm. Right adrenal gland appears normal. Kidneys are unremarkable. Gallbladder is unremarkable. M ultiple scattered diverticuli are through the colon especially through the sigmoid colon. No inflamma tory changes are identified adjacent. Prostate appears normal. Urinary bladder is normal. Aorta tapers normally through its visualized course. No aneurysmal dilatation is evident. No dissecti on is identified. Celiac axis and superior mesenteric artery are normal. Right and left main renal ar teries appear normal. There may be an accessory superior left renal artery. Vascular calcifications i n the wall of the abdominal aorta. The bifurcation is unremarkable. Common, internal and external yue ac vessels are patent. No dissection or aneurysm is evident. Lumbar spine degenerative disc changes present L5-S1. Facet degenerative changes in lower lumbar spin e. No spinal canal stenosis is present. Thoracic spine appears unremarkable. IMPRESSION: 1. NORMAL THORACIC AND ABDOMINAL AORTA. NO DISSECTION OR ANEURYSM. 2. THERE IS SOME MILD THICKENING OF THE LEFT ADRENAL GLAND WHICH COULD REFLECT AN UNDERLYING ADENOMA. .
[2022-12-04] MEDS ORDERED: NITROGLYCERIN SL TABS 0.4 MG TAB SUBLINGUAL PRN (15:12)
[2022-12-04] MEDS: NITROGLYCERIN OINT 1 INCH/GM PACKET TOPICAL SCH ×2 (16:19→23:03)
--- NOTE | 2022-12-04 16:19 | P.HPIM ---
History of Present Illness H&P Date: 12/04/22 Patient is a 77-year-old female with history of hypertension, dyslipidemia, skin cancer, atrial fibrillation status post ablation not on anticoagulation presenting with chest pain. She claims that initially started as thoracic back pain which then proceeded to her chest. He started last night, but now resolved. She denies any shortness of breath, palpitations, nausea, vomiting, diarrhea, constipation, abdominal pain, fevers, chills, or urinary complaints. She denies any recent travel history or sick contacts. She denies any smoking, alcohol use, or illicit drug use. In the ED, temperature 98.2, pulse 62, blood pressure 140/69, saturating at 99% on room air, respiratory rate 18. WBC 5, hemoglobin 13.7, potassium 4.1, magnesium 2.1, creatinine 0.84, troponin negative, proBNP 136, d-dimer 1.48. EKG shows sinus rhythm. Chest x-ray shows no acute process. Thoracic aorta CT shows no acute dissection or aneurysm, possible mild thickening of the left adrenal gland consistent with adenoma. Patient admitted for chest pain observation with cardiology consult. Pertinent positives and negatives as discussed in HPI, a complete review of systems was performed and all other systems are negative. Patient seen and examined at bedside. Vital signs reviewed General: nontoxic, no distress, appears at stated age Derm: warm, dry Head: atraumatic, normocephalic, symmetric Eyes: EOMI, no lid lag, anicteric sclera, pupils equal round reactive to light ENT: Nose and ears atraumatic Neck: No thyromegaly, supple Mouth: no lip lesion, mucus membranes moist Cardiovascular: S1S2 reg, no murmur, no edema Lungs: clear to auscultation bilateral, no rhonchi, no rales, no wheeze, no accessory muscle use Abdominal: soft, nontender to palpation, no guarding, no appreciable organomegaly Ext: no gross muscle atrophy, muscle strength muscle strength 5 out of 5 in all 4 extremities, no contractures Neuro: CN II-XII grossly intact Psych: Alert, oriented, appropriate affect Assessment/Plan: Acute chest pain, rule out ACS Elevated d-dimer Mild thickening of the left adrenal gland: Noted on CT -EKG independently interpreted, shows sinus rhythm, no significant ST-T wave changes -Chest x-ray independently interpreted, shows no acute process -CT chest did not show any acute process -Telemetry -Continue aspirin and statin -Cardiology consult -Trend troponin -Outpatient follow-up for adrenal gland thickening Chronic: Hypertension Dyslipidemia GERD Atrial fibrillation status post ablation, not on anticoagulation The patient is admitted with an anticipated less than 2 midnight stay as observation status for evaluation of chest pain. Surrogate decision-maker: Sibling CODE STATUS: Full code DVT prophylaxis:. Heparin Anticipated discharge date: 1-[address]: Home A total of 55 minutes was spent on the care of this complex patient more than 50% of the time was spent in counseling and care coordination. Past Medical History Past Medical History: Atrial Fibrillation, Cancer, GERD/Reflux, Hyperlipidemia, Hypertension Additional Past Medical History / Comment(s): RECENT LEFT LEG SQUAMOUS CELL LESION REMOVED, SCABBED AREA, HIATAL HERNIA, SPINAL STENOSIS OF NECK, HX IRREGULAR HEART BEAT, HX ATRIAL FIB.,GONZALEZ'S ESOPHAGUS, OSTEOPOROSIS-HAD CT SCAN DONE LT SHOULDER- SHOWED PULMONARY NODULE 7MM LT UPPER LOBE- PATIENT STATES UNAWARE OF THIS HX OF PULMONARY NODULE History of Any Multi-Drug Resistant Organisms: None Reported Past Surgical History: Appendectomy, Back Surgery, Cardiac Ablation, Heart Catheterization, Hernia Repair, Hysterectomy, Joint Replacement, Tonsillectomy Additional Past Surgical History / Comment(s): LESION REMOVED LEFT LEG, KYLE SHOULDER REPLACEMENT, KYLE CATARACTS, skin cancer removed from face, Past Anesthesia/Blood Transfusion Reactions: No Reported Reaction Past Psychological History: No Psychological Hx Reported Smoking Status: Former smoker - Past Family History Mother Family Medical History: Cancer Additional Family Medical History / Comment(s): BREAST & BONE CA- @ AGE 96 Sister(s) Family Medical History: Cancer Additional Family Medical History / Comment(s): SKIN CA Father Family Medical History: Dementia Additional Family Medical History / Comment(s): alzheimers. at age 92 Medications and Allergies Home Medications Medication Instructions Recorded Confirmed Type Omeprazole [PriLOSEC] 20 mg PO W/BRKFST 02/13/14 12/04/22 History Aspirin EC [Ecotrin Low Dose] 81 mg PO W/BRKFST 12/04/22 12/04/22 History Lisinopril-Hctz 20-12.5 mg 1 tab PO W/BRKFST 12/04/22 12/04/22 History [Zestoretic 20-12.5] Multivitamins, Thera [Multivitamin 1 tab PO W/BRKFST 12/04/22 12/04/22 History (formulary)] Rosuvastatin Calcium [Crestor] 40 mg PO HS 12/04/22 12/04/22 History Allergies Allergy/AdvReac Type Severity Reaction Status Date / Time niacin AdvReac Unknown MUSCLE Verified 12/04/22 15:18 ACHES floracaine Allergy Severe Swelling Uncoded 12/04/22 15:18 OF EYE LIDS FROM DROPS Physical Exam Vitals: Vital Signs Temp Pulse Resp BP Pulse Ox 12/04/22 15:00 59 L 16 136/63 98 12/04/22 12:40 53 L 18 134/67 97 12/04/22 10:01 98.2 F 62 18 140/69 99 Intake and Output 12/04/22 12/04/22 12/04/22 06:59 14:59 22:59 Other: Weight 81.647 kg Results CBC & Chem 7: 12/04/22 11:04 12/04/22 11:04 Labs: Abnormal Lab Results - Last 24 Hours (Table) 12/04/22 12/04/22 Range/Units 11:04 11:04 D-Dimer 1.48 H (<0.60) mg/L FEU BUN 21 H (7-17) mg/dL Glucose 115 H (74-99) mg/dL
[2022-12-04] MEDS ORDERED: ATORVASTATIN 80 MG TAB PO SCH (21:00)
[2022-12-04 21:47] VITALS: RESP 16
[2022-12-05] MEDS: NITROGLYCERIN OINT 1 INCH/GM PACKET TOPICAL SCH ×2 (05:13→07:10)
[2022-12-05] MEDS ORDERED: ASPIRIN 81 MG PO SCH (07:30)
[2022-12-05] MEDS ORDERED: MULTIVITAMINS, THERA 1 EACH TAB PO SCH (07:30)
[2022-12-05] MEDS ORDERED: LISINOPRIL-HCTZ 20-12.5 MG 1 EACH TAB PO SCH (07:30)
[2022-12-05] MEDS ORDERED: PANTOPRAZOLE 40 MG TABLET PO SCH (07:30)
[2022-12-05] MEDS ORDERED: ASPIRIN 325 MG TAB PO SCH (09:00)
[2022-12-05 09:09] VITALS: BP 110/65; PULSE 57; TEMP 97.9
[2022-12-05 10:07] LABS: Chol/HDL Ratio 2.04 Ratio; LDL Cholesterol,Calculated 49.2 mg/dL (0.0-131.0); VLDL Calculation 18.98 mg/dL (5.00-40.00)
--- NOTE | 2022-12-05 11:19 | P.DS ---
Providers Date of admission: 12/04/22 15:12 Expected date of discharge: 12/05/22 Attending physician: Denia Alegria MD Consults: 12/04/22 15:12 Consult Physician Urgent Consulting Provider: Silas Rao Consult Reason/Comments: cp Do you want consulting provider notified?: Yes Primary care physician: [facility] Course: Discharge Diagnosis: Acute chest pain Elevated d-dimer Mild thickening of the left adrenal gland Noted on CT History of Holt's esophagus GERD Atrial fibrillation status post ablation Hospital Course: 77-year-old female with history of hypertension, dyslipidemia, skin cancer, atrial fibrillation status post ablation not on anticoagulation presenting with chest pain. In the ED, temperature 98.2, pulse 62, blood pressure 140/69, saturating at 99% on room air, respiratory rate 18. WBC 5, hemoglobin 13.7, potassium 4.1, magnesium 2.1, creatinine 0.84, troponin negative, proBNP 136, d- dimer 1.48. EKG shows sinus rhythm. Chest x-ray shows no acute process. Thoracic aorta CT shows no acute dissection or aneurysm, possible mild thickening of the left adrenal gland consistent with adenoma. Patient admitted for chest pain observation with cardiology consult. Troponin negative 3. Chest pain likely noncardiac in nature. She needs follow-up with GI to further evaluate her reflux symptoms as well as follow-up on Holt's esophagus. Patient seen and examined at bedside. Vital signs reviewed and stable. General: nontoxic, no distress, appears at stated age Derm: warm, dry Head: atraumatic, normocephalic, symmetric Eyes: EOMI, no lid lag, anicteric sclera Mouth: no lip lesion, mucus membranes moist Cardiovascular: S1S2 reg, no murmur Lungs: CTA bilateral, no rhonchi, no rales , no accessory muscle use Abdominal: soft, nontender to palpation, no guarding, no appreciable organomegaly Ext: no gross muscle atrophy, no edema, no contractures Neuro: CN II-XI grossly intact, no focal neuro deficits Psych: Alert, oriented, appropriate affect A total of 33 minutes of time were spent preparing this complex discharge summary. Patient was discharged on 12/05/22 at 9:37. Patient Condition at Discharge: Stable Plan - Discharge Summary New Discharge Prescriptions: Continue Omeprazole [PriLOSEC] 20 mg PO W/BRKFST Rosuvastatin Calcium [Crestor] 40 mg PO HS Lisinopril-Hctz 20-12.5 mg [Zestoretic 20-12.5] 1 tab PO W/BRKFST Multivitamins, Thera [Multivitamin (formulary)] 1 tab PO W/BRKFST Aspirin EC [Ecotrin Low Dose] 81 mg PO W/BRKFST Discharge Medication List Omeprazole [PriLOSEC] 20 mg PO W/BRKFST 02/13/14 [History] Aspirin EC [Ecotrin Low Dose] 81 mg PO W/BRKFST 12/04/22 [History] Lisinopril-Hctz 20-12.5 mg [Zestoretic 20-12.5] 1 tab PO W/BRKFST 12/04/22 [History] Multivitamins, Thera [Multivitamin (formulary)] 1 tab PO W/BRKFST 12/04/22 [History] Rosuvastatin Calcium [Crestor] 40 mg PO HS 12/04/22 [History] Follow up Appointment(s)/Referral(s): Walt Leblanc MD [STAFF PHYSICIAN] - 2 Weeks René Geronimo DO [Primary Care Provider] - 1-2 days Patient Instructions/Handouts: Chest Pain (DC), Noncardiac Chest Pain (DC) Activity/Diet/Wound Care/Special Instructions: Please see GI for possible another upper endoscopy. Discharge Disposition: HOME SELF-CARE
--- NOTE | 2022-12-05 14:36 | CONS ---
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 She came into the hospital because she complained of back pain in the upper right scapular area and sometimes in the intrascapular area. Pain seems very musculoskeletal. There is a lot of muscle spasm of her paraspinal muscles. She also complained of some sharp pain in the chest. Pain in the chest is atypical. Most of her complaint is back discomfort. She may have done some activity with her upper extremities. There may be some muscle spasm. She is resting comfortably without symptoms. She had a CT angio because of midscapular pain, and there is no evidence of any aortic aneurysm, and pulmonary artery appears to be unremarkable. She is resting comfortably without symptoms at the time of my evaluation. PAST MEDICAL HISTORY: 1. Hypertension. 2. Hyperlipidemia. 3. Atypical chest pain. 4. Noncritical CAD based on a cardiac catheterization in September of 2020. MEDICATIONS AT HOME: Include: 1. Crestor 40 mg daily. 2. Aspirin 81 mg daily. 3. Lisinopril/hydrochlorothiazide 20/12.5 one tablet daily. 4. Omeprazole. ALLERGIES: She is allergic to niacin. PHYSICAL EXAMINATION: VITAL SIGNS: Blood pressure is 110/70, pulse rate is 66 per minute. HEENT: Unremarkable. Fundus was not examined by me. NECK: Supple. No JVD. I do not hear a carotid bruit. There is no thyromegaly. HEART: Reveals S1 and S2 with a short systolic murmur at left sternal border. LUNGS: Clear. ABDOMEN: Soft and nontender. EXTREMITIES: Lower extremities reveal normal pulses. No edema. CENTRAL NERVOUS SYSTEM: Normal. DIAGNOSTIC STUDIES: EKG revealed sinus mechanism, no acute changes. LABORATORY DATA: Reveal unremarkable troponins. IMPRESSION: 1. Atypical chest pain. 2. Hypertension. 3. Hyperlipidemia. 4. Recent cardiac catheterization within the last 2 years revealed no significant coronary artery disease. The patient's pain is atypical. RECOMMENDATIONS: We will increase activity and advise some nonsteroidals or to have some warm pack over her upper back. No further cardiac workup is necessary. The patient can be discharged and follow up with Dr. Leblanc in 2 to 3 weeks. Advised to follow up with PCP as well. Clinical picture suggests musculoskeletal chest pain. MMODL / IJN: [id number] /
== END 2022-12-05 13:04 | disposition home or self-care (01) ==
LOC: EC 09:58 → 6NMEDSUR 15:12
PROVIDERS: ADMIT Internal Medicine; ATTEND Internal Medicine
DX: R07.89 Other chest pain (principal); R79.89 Other specified abnormal findings of blood chemistry; M81.0 Age-related osteoporosis without current pathological fracture; K22.70 Barrett's esophagus without dysplasia; I48.91 Unspecified atrial fibrillation; I25.10 Atherosclerotic heart disease of native coronary artery without angina pectoris; K44.9 Diaphragmatic hernia without obstruction or gangrene; M51.37 Other intervertebral disc degeneration, lumbosacral region; K21.9 Gastro-esophageal reflux disease without esophagitis; I10 Essential (primary) hypertension; E78.5 Hyperlipidemia, unspecified; J44.9 Chronic obstructive pulmonary disease, unspecified; M51.35 Other intervertebral disc degeneration, thoracolumbar region; Z79.82 Long term (current) use of aspirin; Z79.899 Other long term (current) drug therapy; Z85.828 Personal history of other malignant neoplasm of skin; Z90.710 Acquired absence of both cervix and uterus; Z96.612 Presence of left artificial shoulder joint; Z96.611 Presence of right artificial shoulder joint; Z98.42 Cataract extraction status, left eye; Z98.41 Cataract extraction status, right eye; Z87.891 Personal history of nicotine dependence; Z82.0 Family history of epilepsy and other diseases of the nervous system; Z80.8 Family history of malignant neoplasm of other organs or systems; Z88.8 Allergy status to other drugs, medicaments and biological substances
CPT/HCPCS: 99285; 36415; 94760; 93005; 85379; 83880; 80061; 80053; 82150; 83690; 83735; 84484; 85025; 85610; 85730; 71046; 71275; 74174; G0378 ×2; Q9967

== ENCOUNTER → 2023-01-26 | Outpatient (CLI) | payer MEDICARE, OTHER ==
--- NOTE | 2023-01-27 19:25 | MM ---
Reason for Exam: Screening (asymptomatic). Last screening mammogram was performed 12 month(s) ago. Patient History: Menarche at age 11. Patient has no children. Left ovary removed at age 36. Right ovary removed at age 36. Hysterectomy at age 36. Postmenopausal. Other cancer. Maternal cousin had breast cancer, age 65. Mother had breast cancer, age 66. Risk Values: Holly 5 year model risk: 3.4%. NCI Lifetime model risk: 6.0%. Prior Study Comparison: 01/23/2022 Bilateral MG 3D screening mammo w/cad, [facility]. 01/28/2022 Left MG 3D work up w/cad LT, [facility]. 07/28/2022 Left MG 3D diag mammo w/cad LT, [facility]. Tissue Density: The breast tissue is heterogeneously dense. This may lower the sensitivity of mammography. Findings: Analyzed By CAD. Unchanged focal asymmetry outer posterior right breast. Scattered benign secretory calcifications are redemonstrated. There is no suspicious group of microcalcifications or new suspicious mass in either breast. Overall Assessment: Benign, BI-RAD 2 Management: Screening Mammogram of both breasts in 1 year. See note below in regards to patient's increased five-year Holly score. Patient should continue monthly self-breast exams. A clinical breast exam by your physician is recommended on an annual basis. This exam should not preclude additional follow-up of suspicious palpable abnormalities. Note on Holly scores and lifetime risk: 1. A Holly score greater than 3% is considered moderate risk. If this is the case, consider specialist referral to assess eligibility for a risk reducing agent. 2. If overall lifetime risk for the development of breast cancer is 20% or higher, the patient may qualify for future screening with alternating mammogram and breast MRI. Electronically signed and approved by: Jodi Stock M.D. Radiologist
== END | disposition home or self-care (01) ==
LOC: RADMAMWWP 13:33
PROVIDERS: ATTEND Family Medicine
DX: Z12.31 Encounter for screening mammogram for malignant neoplasm of breast (principal); Z78.0 Asymptomatic menopausal state; Z80.3 Family history of malignant neoplasm of breast
CPT/HCPCS: 77063; 77067

== ENCOUNTER → 2023-05-26 | Outpatient (CLI) | payer MEDICARE, OTHER ==
--- NOTE | 2023-05-26 11:15 | US ---
EXAMINATION TYPE: US carotid duplex BILAT DATE OF EXAM: 05/26/2023 COMPARISON: NONE CLINICAL INDICATION: Female, 78 years old with history of I65.23 OCCLUSION AND STENOSIS; stenosis TECHNIQUE: Carotid duplex ultrasound examination. Indirect Doppler criteria was utilized. FINDINGS: EXAM MEASUREMENTS: RIGHT: Peak Systolic Velocity (PSV) cm/sec ----- Right CCA: 66.3 ----- Right ICA: 117.1 ----- Right ECA: 98.2 ICA/CCA ratio: 1.8 RIGHT: End Diastole cm/sec ----- Right CCA: 11 ----- Right ICA: 32.8 ----- Right ECA: 0 LEFT: Peak Systolic Velocity (PSV) cm/sec ----- Left CCA: 80.8 ----- Left ICA: 98.2 ----- Left ECA: 91 ICA/CCA ratio: 1.2 LEFT: End Diastole cm/sec ----- Left CCA: 16.9 ----- Left ICA: 32.8 ----- Left ECA: 0 VERTEBRALS (direction of flow): Right Vertebral: Antegrade Left Vertebral: Antegrade Rhythm: Normal APPLICATION SOFTWARE DEVELOPER NOTES: No significant stenosis seen IMPRESSION: No ultrasound evidence for hemodynamically significant stenosis of the visualized bilateral carotid a rterial systems. Criteria for Assigning % of Stenosis / Diameter reduction (Estimation based on the indirect measurements of the internal carotid artery velocities (ICA PSV). 1. Normal (no stenosis)=ICA PSV < 125 cm/s: ratio < 2.0: ICA EDV<40 cm/s. 2. Less than 50% stenosis=ICA PSV < 125 cm/s: ratio < 2.0: ICA EDV<40 cm/s. 3. 50 to 69% stenosis=ICA PSV of 125 to 230 cm/s: ration 2.0 ? 4.0: ICA EDV 40-100 cm/s. 4. Greater than 70% stenosis to near occlusion= ICA PSV > 230 cm/s: ratio > 4.0: ICA EDV > 100 cm/s. 5. Near occlusion= ICA PSV velocities may be low or undetectable: variable ratio and ICA EDV. 6. Total occlusion=unable to detect flow.
== END | disposition home or self-care (01) ==
LOC: RADUSWWP 10:44
PROVIDERS: ATTEND Family Medicine
DX: I65.23 Occlusion and stenosis of bilateral carotid arteries (principal)
CPT/HCPCS: 93880

== ENCOUNTER 2023-09-29 08:38 | Day surgery (SDC) | payer MEDICARE, OTHER ==
[~2023-09-29 08:38] MED LIST changes: +DEXAMETHASONE SOD PHOSPHATE 4 MG/ML 1 ML VIAL IV ONE; +HYDROmorphone 0.5 MG/0.5 ML SYRINGE IVP PRN; -LACTATED RINGERS 1,000 ML IV SCH; -LIDOCAINE 1% (10MG/ML) FOR IV START INTRADERMA PRN; +ONDANSETRON 4 MG/2 ML VIAL IVP ONE
[2023-09-29 09:25] VITALS: TEMP 96.9
[2023-09-29] MEDS: LACTATED RINGERS 1,000 ML IV SCH (09:26)
[2023-09-29 09:30] LABS: Glucose,Whole Blood 108 mg/dL (70-110)
[2023-09-29] MEDS ORDERED: LIDOCAINE 1% INJ 10MG/ML (20 ML MDV) ONE (10:11)
[2023-09-29] MEDS ORDERED: PROPOFOL 10 MG/ML 20 ML VIAL IV ONE (10:11)
--- NOTE | 2023-09-29 10:21 | P.PCN ---
Date of Procedure: 09/29/23 Procedure(s) Performed: BRIEF HISTORY: Patient is a 78-year-old, pleasant, and white female as a part of evaluation of GERD and Holt's esophagus. PROCEDURE PERFORMED: Esophagogastroduodenoscopy with biopsy. PREOPERATIVE DIAGNOSIS: GERD/Holt's esophagus. IV sedation per anesthesia. PROCEDURE: After informed consent was obtained, the patient was brought into the endoscopy unit. IV sedation was administered by Anesthesia under continuous monitoring. Initially the Olympus GIF-140 video endoscope was inserted into the mouth. Esophagus intubated without any difficulty. It was gradually advanced into the stomach and duodenum and carefully examined. The bulb and the second part of the duodenum appeared normal. The scope at this time was withdrawn to the stomach, adequately insufflated with air, and upon careful examination, mucosa of the antrum, body, cardia and the fundus appeared normal. Multiple small gastric polyps noted in the body the stomach which were biopsied. The scope was then withdrawn into the esophagus. Small hiatal hernia noted. The GE junction was located at 38 cm from the incisors. There was a short segment of Holt's esophagus extending 3 mm proximal to the GE junction that was biopsied. The rest of the esophagus appeared normal. There were no erosions or ulcerations seen and the patient tolerated the procedure well. IMPRESSION: 1. Small hiatal hernia. 2. Short segment Holt's esophagus status post biopsy. 3. Small gastric polyps RECOMMENDATIONS: The findings of this examination were discussed with the patient as well as a family. She was advised to follow with the biopsy results. If the biopsy confirms the presence of Holt's esophagus he can have a repeat upper endoscopy in 2 years. Continue with omeprazole 20 mg daily and follow antrum reflux measures..
[2023-09-29 10:35] VITALS: RESP 16
[2023-09-29 11:10] VITALS: BP 120/64; PULSE 65
== END 2023-09-29 11:07 | disposition home or self-care (01) ==
LOC: ORWHC2ENDO 08:38
PROVIDERS: ATTEND Internal Medicine Gastroenterology
DX: K31.7 Polyp of stomach and duodenum (principal); K22.70 Barrett's esophagus without dysplasia; K44.9 Diaphragmatic hernia without obstruction or gangrene; K21.00 Gastro-esophageal reflux disease with esophagitis, without bleeding; K31.A0 Gastric intestinal metaplasia, unspecified; I48.92 Unspecified atrial flutter; I10 Essential (primary) hypertension; E78.5 Hyperlipidemia, unspecified; M19.90 Unspecified osteoarthritis, unspecified site; Z79.82 Long term (current) use of aspirin; Z79.899 Other long term (current) drug therapy; Z98.890 Other specified postprocedural states; Z88.1 Allergy status to other antibiotic agents; Z88.8 Allergy status to other drugs, medicaments and biological substances
CPT/HCPCS: 88305; 43239; J2001; J2704

== ENCOUNTER → 2024-02-19 | Outpatient (CLI) | payer MEDICARE, OTHER ==
--- NOTE | 2024-03-16 11:21 | MM ---
Reason for Exam: Screening (asymptomatic). Last mammogram was performed 1 year(s) and 1 month(s) ago. Patient History: Menarche at age 11. Patient has no children. Left ovary removed at age 36. Right ovary removed at age 36. Hysterectomy at age 36. Postmenopausal. Other cancer. Maternal cousin had breast cancer, age 65. Mother had breast cancer, age 66. Risk Values: Holly 5 year model risk: 3.3%. NCI Lifetime model risk: 5.5%. Prior Study Comparison: 01/28/2022 Left MG 3D work up w/cad LT, [facility]. 07/28/2022 Left MG 3D diag mammo w/cad LT, [facility]. 01/26/2023 Bilateral MG 3D screening mammo w/cad, [facility]. Tissue Density: The breasts are heterogeneously dense, which may obscure small masses. Findings: Analyzed By CAD. Right breast: There is no suspicious group of microcalcifications or new suspicious mass. Benign-appearing calcifications right breast. Left breast: There is no suspicious group of microcalcifications or new suspicious mass. Benign-appearing calcifications left breast. Overall Assessment: Benign, BI-RAD 2 Management: Screening Mammogram of both breasts in [address] [facility] will attempt to contact patient to return for supplemental views and ultrasound if indicated. Patient should continue monthly self-breast exams. A clinical breast exam by your physician is recommended on an annual basis. This exam should not preclude additional follow-up of suspicious palpable abnormalities. Note on Holly scores and lifetime risk: 1. A Holly score greater than 3% is considered moderate risk. If this is the case, consider specialist referral to assess eligibility for a risk reducing agent. 2. If overall lifetime risk for the development of breast cancer is 20% or higher, the patient may qualify for future screening with alternating mammogram and breast MRI. Electronically signed and approved by: Roscoe Cordero DO
== END | disposition home or self-care (01) ==
LOC: RADMAMWWP 08:49
PROVIDERS: ATTEND Family Medicine
DX: Z12.31 Encounter for screening mammogram for malignant neoplasm of breast (principal); R92.333 Mammographic heterogeneous density, bilateral breasts; Z78.0 Asymptomatic menopausal state; Z80.3 Family history of malignant neoplasm of breast; Z90.721 Acquired absence of ovaries, unilateral
CPT/HCPCS: 77063; 77067

== ENCOUNTER 2024-03-18 12:11 | Observation (INO) | payer MEDICARE, OTHER ==
[2024-03-18] MEDS: ASPIRIN 81 MG PO STA (13:55)
[2024-03-18 14:01] LABS: Basophils % (A) 1 %; Eosinophils # (A) 0.1 k/uL (0-0.7); Eosinophils % (A) 1 %; HCT 40.1 % (34.0-46.0); HGB 13.2 gm/dL (11.4-16.0); Lymphocytes # (A) 1.3 k/uL (1.0-4.8); Lymphocytes % (A) 25 %; MCH 30.1 pg (25.0-35.0); MCHC 32.9 g/dL (31.0-37.0); MCV 91.6 fL (80.0-100.0); Mean Platelet Volume 7.7; Monocytes # (A) 0.4 k/uL (0-1.0); Monocytes % (A) 7 %; Neutrophils # (A) 3.5 k/uL (1.3-7.7); Neutrophils % (A) 65 %; Platelet Count 248 k/uL (150-450); RBC 4.37 m/uL (3.80-5.40); RDW 12.8 % (11.5-15.5); WBC 5.4 k/uL (3.8-10.6)
[2024-03-18 14:09] LABS: INR 0.9 (<1.2)
[2024-03-18 14:10] LABS: Prothrombin Time 10.2 sec (10.0-12.5)
--- NOTE | 2024-03-18 14:10 | ED ---
Chest Pain HPI - General Chief Complaint: Chest Pain Stated Complaint: Tingliness in left shoulder, arm Time Seen by Provider: 03/18/24 12:49 Source: patient Mode of arrival: ambulatory Limitations: no limitations - History of Present Illness Initial Comments: Patient is a 78-year-old female, past medical history of atrial fibrillation, hyperlipidemia, hypertension presenting for chest pressure with radiation down her left arm. This woke up with the chest pressure. Then noticed radiation down her left arm and felt like her left palm was colder in her right palm. Initially attributed symptoms to Gonzalez's esophagus and prior left shoulder replacement however ultimately presented to the ER because the symptoms were different from prior symptoms secondary to these etiology. Patient has no history of prior NC does states she "has "leaky valves". No family history of ACS or strokes. Patient is a non-smoker. No shortness of breath, lower ext remity swelling, recent travel surgeries or hospitalizations, no cough or hemoptysis. - Related Data Home Medications Medication Instructions Recorded Confirmed Omeprazole [PriLOSEC] 20 mg PO AC-BID 02/13/14 03/18/24 Aspirin EC [Ecotrin Low Dose] 81 mg PO DAILY 12/04/22 03/18/24 Lisinopril-Hctz 20-12.5 mg 1 tab PO DAILY 12/04/22 03/18/24 [Zestoretic 20-12.5] Rosuvastatin Calcium [Crestor] 40 mg PO HS 12/04/22 03/18/24 Cholecalciferol [Vitamin D3 (25 50 mcg PO DAILY 09/25/23 03/18/24 Mcg = 1000 Iu)] Allergies Allergy/AdvReac Type Severity Reaction Status Date / Time niacin AdvReac Unknown MUSCLE Verified 03/18/24 13:36 ACHES floracaine Allergy Severe Swelling Uncoded 03/18/24 12:24 OF EYE LIDS FROM DROPS Review of Systems ROS Statement: Those systems with pertinent positive or pertinent negative responses have been documented in the HPI. Constitutional: Denies: fever, chills Respiratory: Denies: cough, dyspnea, hemoptysis Cardiovascular: Reports: chest pain. Denies: edema Gastrointestinal: Denies: abdominal pain, vomiting Past Medical History Past Medical History: Atrial Fibrillation, Cancer, Diabetes Mellitus, GERD/Reflux, Hyperlipidemia, Hypertension, Osteoarthritis (OA) Additional Past Medical History / Comment(s): RECENT LEFT LEG SQUAMOUS CELL LESION REMOVED, HIATAL HERNIA, SPINAL STENOSIS OF NECK, HX IRREGULAR HEART BEAT, HX ATRIAL FIB.,GONZALEZ'S ESOPHAGUS, OSTEOPOROSIS, CT scan SHOWED PULMONARY NODULE 7MM LT UPPER LOBE- PCP monitors, borderline diabetic History of Any Multi-Drug Resistant Organisms: None Reported Past Surgical History: Appendectomy, Back Surgery, Cardiac Ablation, Heart Catheterization, Hernia Repair, Hysterectomy, Joint Replacement, Tonsillectomy Additional Past Surgical History / Comment(s): LESION REMOVED LEFT LEG, KYLE SHOULDER REPLACEMENT, KYLE CATARACTS, skin cancer removed from face, colonoscopies, biopsy removed from back (benign)(2023) Past Anesthesia/Blood Transfusion Reactions: No Reported Reaction Past Psychological History: No Psychological Hx Reported Smoking Status: Former smoker Past Alcohol Use History: None Reported Past Drug Use History: None Reported - Past Family History Mother Family Medical History: Cancer Additional Family Medical History / Comment(s): BREAST & BONE CA- @ AGE 96 Sister(s) Family Medical History: Cancer Additional Family Medical History / Comment(s): SKIN CA Father Family Medical History: Dementia Additional Family Medical History / Comment(s): alzheimers. at age 92 General Exam - General Exam Comments Initial Comments: PE: CONSTITUTIONAL: No apparent distress, well appearing SKIN: Warm, dry, no jaundice, hives or petechiae EYES: Pupils are equally round, extraocular movements intact without nystagmus, clear conjunctiva, non-icteric sclera HENT: Normocephalic, atraumatic, moist mucus membranes, oropharynx clear without exudates NECK: , Full range of motion, normal appearance PULMONARY: Clear to auscultation without wheezes, rhonchi, or rales, normal excursion, no accessory muscle use and no stridor CARDIOVASCULAR: Regular rate, rhythm, normal S1 and S2. No appreciated murmurs, rubs or gallops. Strong and equal radial pulses with intact distal perfusion. No lower extremity edema, no chest wall tenderness to palpation GASTROINTESTINAL: Soft, non-tender, non-distended, no palpable masses, no rebound or guarding. No hepatosplenomegaly MUSCULOSKELETAL: Extremities have no gross deformity, no edema, redness, or swelling. No calf swelling ot TTP. NEUROLOGIC:_a/o x 3, GCS 15, normal mentation and speech. Moves all extremities x 4 without motor or sensory deficit PSYCHIATRIC:_normal mood and affect, thought process is clear and linear Limitations: no limitations Course Vital Signs 03/18/24 03/18/24 03/18/24 12:20 15:35 15:45 Temperature 98.2 F 98.2 F Pulse Rate 69 59 L 66 Respiratory 18 16 16 Rate Blood Pressure 131/86 113/63 110/84 O2 Sat by Pulse 96 95 95 Oximetry 03/18/24 03/18/24 16:25 18:15 Temperature 97.8 F 98.0 F Pulse Rate 54 L 61 Respiratory 18 17 Rate Blood Pressure 139/64 122/59 O2 Sat by Pulse 99 96 Oximetry Chest Pain MDM - MDM Was pt. sent in by a medical professional or institution (, PA, BULB ASSEMBLER, urgent care, hospital, or long-term...) When possible be specific @ -No Did you speak to anyone other than the patient for history (EMS, parent, family, police, friend...)? What history was obtained from this source @ -No Did you review nursing and triage notes (agree or disagree)? Why? @ -I reviewed and agree with nursing and triage notes Were old charts reviewed (outside hosp., previous admission, EMS record, old EKG, old radiological studies, urgent care reports/EKG's, long-term records)? Report findings @ last documented stress test in 2018, negative stress test no chest pain, negative stress echo no arrhythmias Differential Diagnosis (chest pain, altered mental status, abdominal pain women, abdominal pain men, vaginal bleeding, weakness, fever, dyspnea, syncope, headache, dizziness, GI bleed, back pain, seizure, CVA, palpatations, mental health, musculoskeletal)? @ -Differential Chest Pain: Stable Angina, Unstable Angina, STEMI, NSTEMI, pericarditis, pleurisy, chostochondirits, Musculoskeletal, Esophageal Spasm GERD, Zoster, this is not meant to be an all-inclusive list. EKG interpreted by me (3pts min.). @Sinus rhythm, small-moderate artifact present, rate 62 bpm, DE intervals 144 ms, QRS duration 101 ms, QT/QTc 407/412 ms, normal axis, no significant ST elevation or depression X-rays interpreted by me (1pt min.). @ -Reviewed, no consolidations, no cardiomegaly, no pulmonary effusions, I see no acute process CT interpreted by me (1pt min.). @ -None done U/S interpreted by me (1pt. min.). @ -None done What testing was considered but not performed or refused? (CT, X-rays, U/S, labs)? Why? @ -None What meds were considered but not given or refused? Why? @ -None Did you discuss the management of the patient with other professionals (professionals i.e. , PA, BULB ASSEMBLER, lab, RT, psych nurse, manager social work, criminal lawyer, teacher, fire prevention officer, business case analyst)? Give summary @ -No Was smoking cessation discussed for >3mins.? @ -No Was critical care preformed (if so, how long)? @ -No Were there social determinants of health that impacted care today? How? (Homelessness, low income, unemployed, alcoholism, drug addiction, transportation, low edu. Level, literacy, decrease access to med. care, fci, rehab)? @ -No Was there de-escalation of care discussed even if they declined (Discuss DNR or withdrawal of care, Hospice)? DNR status @ -No What co-morbidities impacted this encounter? (DM, HTN, Smoking, COPD, CAD, Cancer, CVA, ARF, Chemo, Hep., AIDS, mental health diagnosis, sleep apnea, morbid obesity)? @ -HTN, HLD Was patient admitted / discharged? Hospital course, mention meds given and route, prescriptions, significant lab abnormalities, going to OR and other pertinent info. @ -Hospital course Admitted- Patient pleasant 78 y/o female presenting today for left sided chest pressure that she noticed upon waking this morning with subsequent radiation down the left arm. Symptoms come and go. Not present currently. On my assessment patient is well-appearing and in no acute distress. Normal S1-S2 on cardiac exam, no murmurs appreciated, lungs clear to auscultation bilaterally, no lower extremity edema. Chest pain is not reproducible with palpation. Chest pain workup initiated. Labs and imaging reviewed. Grossly within normal limits. Abnormal values not concerning for acute pathology related to presenting complaint.. Updated patient to findings. Heart score 4 given age and description of pain as well as risk factors. Patient is agreeable with plan for admission. Discussed with Dr. Barrera, who kindly accepted for admission. Undiagnosed new problem with uncertain prognosis? @ -Yes Drug Therapy requiring intensive monitoring for toxicity (Heparin, Nitro, Insulin, Cardizem)? @ -No Were any procedures done? @ -No Diagnosis/symptom? @ -Chest pain Acute, or Chronic, or Acute on Chronic? @ -Acute Uncomplicated (without systemic symptoms) or Complicated (systemic symptoms)? @ -Complicated Side effects of treatment? @ -No Exacerbation, Progression, or Severe Exacerbation? @ -No Poses a threat to life or bodily function? How? (Chest pain, USA, NC, pneumonia, PE, COPD, DKA, ARF, appy, cholecystitis, CVA, Diverticulitis, Homicidal, Suicidal, threat to staff... and all critical care pts) @ -Yes Disposition Clinical Impression: Chest pain Disposition: ADMITTED IP TO THIS HOSP
--- NOTE | 2024-03-18 14:15 | XR ---
EXAMINATION TYPE: XR chest 2V DATE OF EXAM: 03/18/2024 2:07 PM CLINICAL INDICATION: Female, 78 years old with history of Chest Pain; [facility] COMPARISON: 12/04/2022 TECHNIQUE: XR chest 2V Frontal view of the chest. FINDINGS: Lungs/Pleura: There is flattening of the diaphragm with increased lucency of the lungs. No evidence o f pneumothorax, pleural effusion or focal consolidation. Pulmonary vascularity: Unremarkable. Heart/mediastinum: Cardiomediastinal silhouette is unremarkable. Musculoskeletal: No acute osseous pathology. Bilateral shoulder arthroplasties appear intact. Other findings: None Lines/Tubes: IMPRESSION: 1. No acute cardiopulmonary disease process. 2. COPD changes.
[2024-03-18 14:25] LABS: ALT 16 U/L (4-34); AST 22 U/L (14-36); African American GFR (CKD) 71 (>60 ml/min/1.73 sqM); Albumin 4.6 g/dL (3.5-5.0); Alkaline Phosphatase 60 U/L (38-126); Amylase 65 U/L (30-110); Anion Gap 10 mmol/L; Blood Urea Nitrogen 25 mg/dL (7-17); Calcium 10.2 mg/dL (8.4-10.2); Carbon Dioxide 26 mmol/L (22-30); Chloride 102 mmol/L (98-107); Glucose 118 mg/dL (74-99); Lipase 136 U/L (23-300); Non-African American GFR(CKD) 62 (>60 ml/min/1.73 sqM); Potassium 4.1 mmol/L (3.5-5.1); Sodium 138 mmol/L (137-145); Total Bilirubin 0.6 mg/dL (0.2-1.3); Total Protein 7.2 g/dL (6.3-8.2)
[2024-03-18 14:32] LABS: NT-Pro-B-Type Natriuretic Pept 91 pg/mL
[2024-03-18] MEDS ORDERED: NALOXONE 0.4 MG/ML 1 ML VIAL IV PRN (16:02)
[2024-03-18] MEDS ORDERED: ACETAMINOPHEN TAB 325 MG TAB PO PRN (16:02)
[2024-03-18] MEDS ORDERED: CAFFEINE CITRATE 60 MG/3 ML VIAL IV PRN (16:03)
[2024-03-18] MEDS ORDERED: AMINOPHYLLINE 500 MG/20 ML VIAL IV PRN (16:03)
--- NOTE | 2024-03-18 16:13 | P.HPIM ---
History of Present Illness H&P Date: 03/18/24 Chief Complaint: chest pain 78-year-old female, past medical history of atrial fibrillation, hyperlipidemia, hypertension presenting for chest pressure with radiation down her left arm. This is resting pain, not on exertion. Lasts for few minutes. She woke up with the chest pressure. Then noticed radiation down her left arm and hand. [place] arm was cold. Has chronic chest discomfort from hx of Gonzalez's esophagus and prior left shoulder replacement however this time her chest pain is different. Feels like a heavy sensation. Patient has no history of prior [place], states she "has "leaky valves". No family history of ACS or strokes. Patient is a non-smoker. Had some nausea but no shortness of breath, no dizziness, lower extremity swelling, recent travel surgeries or hospitalizations, no cough or hemoptysis. patient also reported that her blood pressure was low down to 85/55 and that her primary care physician told her to come to the ER to check on it. [place] [facility] [place] [facility] [place] cxr and trops negative. She was admitted for further evaluation. Review of Systems complete review of system performed, pertinent positives per HPI, otherwise negative Past Medical History Past Medical History: Atrial Fibrillation, Cancer, Diabetes Mellitus, GERD/Reflux, Hyperlipidemia, Hypertension, Osteoarthritis (OA) Additional Past Medical History / Comment(s): RECENT LEFT LEG SQUAMOUS CELL LESION REMOVED, HIATAL HERNIA, SPINAL STENOSIS OF NECK, HX IRREGULAR HEART BEAT, HX ATRIAL FIB.,GONZALEZ'S ESOPHAGUS, OSTEOPOROSIS, CT scan SHOWED PULMONARY NODULE 7MM LT UPPER LOBE- PCP monitors, borderline diabetic History of Any Multi-Drug Resistant Organisms: None Reported Past Surgical History: Appendectomy, Back Surgery, Cardiac Ablation, Heart Catheterization, Hernia Repair, Hysterectomy, Joint Replacement, Tonsillectomy Additional Past Surgical History / Comment(s): LESION REMOVED LEFT LEG, KYLE SHOULDER REPLACEMENT, KYLE CATARACTS, skin cancer removed from face, colonoscopies, biopsy removed from back (benign)(2023) Past Anesthesia/Blood Transfusion Reactions: No Reported Reaction Past Psychological History: No Psychological Hx Reported Smoking Status: Former smoker Past Alcohol Use History: None Reported Past Drug Use History: None Reported - Past Family History Mother Family Medical History: Cancer Additional Family Medical History / Comment(s): BREAST & BONE CA- @ AGE 96 Sister(s) Family Medical History: Cancer Additional Family Medical History / Comment(s): SKIN CA Father Family Medical History: Dementia Additional Family Medical History / Comment(s): alzheimers. at age 92 Medications and Allergies Home Medications Medication Instructions Recorded Confirmed Type Omeprazole [PriLOSEC] 20 mg PO AC-BID 02/13/14 03/18/24 History Aspirin EC [Ecotrin Low Dose] 81 mg PO DAILY 12/04/22 03/18/24 History Lisinopril-Hctz 20-12.5 mg 1 tab PO DAILY 12/04/22 03/18/24 History [Zestoretic 20-12.5] Rosuvastatin Calcium [Crestor] 40 mg PO HS 12/04/22 03/18/24 History Cholecalciferol [Vitamin D3 (25 50 mcg PO DAILY 09/25/23 03/18/24 History Mcg = 1000 Iu)] Allergies Allergy/AdvReac Type Severity Reaction Status Date / Time niacin AdvReac Unknown MUSCLE Verified 03/18/24 13:36 ACHES floracaine Allergy Severe Swelling Uncoded 03/18/24 12:24 OF EYE LIDS FROM DROPS Physical Exam Vitals: Vital Signs Temp Pulse Resp BP Pulse Ox 03/18/24 15:45 98.2 F 66 16 110/84 95 03/18/24 15:35 59 L 16 113/63 95 03/18/24 12:20 98.2 F 69 18 131/86 96 Intake and Output 03/18/24 03/18/24 03/18/24 06:59 14:59 22:59 Other: Weight 77.111 kg Constitutional: No acute distress, conversant, pleasant Eyes:Anicteric sclerae, moist conjunctiva, no lid-lag, PERRLA, ENMT: Oropharynx clear, no erythema, exudates Neck: Supple, FROM, no masses, or JVD, No carotid bruits, No thyromegaly Lungs: Clear to auscultation, Clear to percussion, Normal respiratory effort, no accessory muscle use Cardiovascular: Heart regular in rate and rhythm, No murmurs, gallops, or rubs, No peripheral edema Abdominal: Soft, Nontender, no guarding, rebound or rigidity, Normoactive bowel sounds, No hepatomegaly, No splenomegaly, No palpable mass Skin: Normal temperature, tone, texture, turgor, no induration, No subcutaneous nodules, No rash, lesions, No ulcers Extremities: No digital cyanosis, No clubbing, Pedal pulses intact and symmetrical, Radial pulses intact and symmetrical, No calf tenderness Psychiatric: Alert and oriented to person, place and time, appropriate affect, intact judgement Neuro: Muscles Strength 5/5 in all 4 extremities, Sensation to light touch grossly present throughout, Cranial nerves II-XII grossly intact, no focal se nsory deficits Results CBC & Chem 7: 03/18/24 13:35 03/18/24 13:35 Labs: Abnormal Lab Results - Last 24 Hours (Table) 03/18/24 Range/Units 13:35 BUN 25 H (7-17) mg/dL Glucose 118 H (74-99) mg/dL Assessment and Plan Plan: Chest pain Exercise stress test in a.m., state that she does not want to be injected with a chemical because it makes her feel funny Echocardiogram Telemetry Cardiology consult Hypotension History of hypertension and takes lisinopril with HCTZ hold BP meds for now Hyperlipidemia Gonzalez esophagus Stable Home meds
[2024-03-18] MEDS: PANTOPRAZOLE 40 MG TABLET PO SCH (17:30)
[2024-03-18 18:16] VITALS: TEMP 98
[2024-03-18] MEDS: ATORVASTATIN 80 MG TAB PO SCH (20:47)
[2024-03-19 07:28] LABS: Basophils % (A) 1 %; Eosinophils # (A) 0.1 k/uL (0-0.7); Eosinophils % (A) 3 %; HCT 39.9 % (34.0-46.0); HGB 13.1 gm/dL (11.4-16.0); Lymphocytes % (A) 38 %; MCH 30.2 pg (25.0-35.0); MCHC 32.9 g/dL (31.0-37.0); MCV 91.8 fL (80.0-100.0); Mean Platelet Volume 6.9; Monocytes # (A) 0.4 k/uL (0-1.0); Monocytes % (A) 8 %; Neutrophils # (A) 2.5 k/uL (1.3-7.7); Neutrophils % (A) 48 %; Platelet Count 219 k/uL (150-450); RBC 4.34 m/uL (3.80-5.40); RDW 12.9 % (11.5-15.5); WBC 5.2 k/uL (3.8-10.6)
[2024-03-19 07:44] LABS: ALT 15 U/L (4-34); AST 21 U/L (14-36); African American GFR (CKD) 73 (>60 ml/min/1.73 sqM); Albumin 4.1 g/dL (3.5-5.0); Albumin/Globulin Ratio 1.6; Alkaline Phosphatase 48 U/L (38-126); Anion Gap 3 mmol/L; Blood Urea Nitrogen 19 mg/dL (7-17); Calcium 10.3 mg/dL (8.4-10.2); Carbon Dioxide 31 mmol/L (22-30); Chloride 105 mmol/L (98-107); Globulin 2.6 g/dL; Glucose 115 mg/dL (74-99); Non-African American GFR(CKD) 64 (>60 ml/min/1.73 sqM); Potassium 4.8 mmol/L (3.5-5.1); Sodium 139 mmol/L (137-145); Total Bilirubin 0.6 mg/dL (0.2-1.3); Total Protein 6.7 g/dL (6.3-8.2)
[2024-03-19] MEDS: ASPIRIN 81 MG PO SCH (08:12)
[2024-03-19] MEDS ORDERED: LISINOPRIL-HCTZ 20-12.5 MG 1 EACH TAB PO SCH (09:00)
--- NOTE | 2024-03-19 13:56 | CA ---
Transthoracic Echo Report Name: Cathy Vann Age: 78 Gender: F : 1945 Exam Date: 03/19/2024 10:53 Exam Location: [facility] Ht (in): 67 Wt (lb): 170 Ordering Physician: Trina Power MD Attending/Referring Phys: [id number], Jannet Mask Design Engineer Marcy Reilly RDCS Procedure CPT: Indications: Chest Pain Cardiac Hx: Technical Quality: Fair Contrast 1: Total Dose (mL): Contrast 2: Total Dose (mL): MEASUREMENTS (Male / Female) Normal Values 2D ECHO LV Diastolic Diameter PLAX 4.7 cm 4.2 - 5.9 / 3.9 - 5.3 cm LV Systolic Diameter PLAX 2.9 cm IVS Diastolic Thickness 0.9 cm 0.6 - 1.0 / 0.6 - 0.9 cm LVPW Diastolic Thickness 1.0 cm 0.6 - 1.0 / 0.6 - 0.9 cm LV Relative Wall Thickness 0.4 RV Internal Dim ED PLAX 3.6 cm LA Volume 32.6 cm??? 18 - 58 / 22 - 52 cm??? LA Volume Index 17.0 cm???/m??? 16 - 28 cm???/m??? M-MODE Aortic Root Diameter MM 2.6 cm LA Systolic Diameter MM 4.0 cm LA Ao Ratio MM 1.6 DOPPLER AV Peak Velocity 118.8 cm/s AV Peak Gradient 5.6 mmHg AV Mean Velocity 70.8 cm/s AV Mean Gradient 2.4 mmHg AV Velocity Time Integral 21.8 cm LVOT Peak Velocity 114.3 cm/s LVOT Peak Gradient 5.2 mmHg LVOT Velocity Time Integral 26.7 cm MV Area PHT 2.6 cm??? Mitral E Point Velocity 57.9 cm/s Mitral A Point Velocity 76.2 cm/s Mitral E to A Ratio 0.8 MV Deceleration Time 297.4 ms MV E' Velocity 5.1 cm/s Mitral E to MV E' Ratio 11.4 TR Peak Velocity 231.2 cm/s TR Peak Gradient 21.4 mmHg Right Ventricular Systolic Press 26.0 mmHg FINDINGS Left Ventricle Normal Left ventricular size, wall thickness, systolic function with no obvious regional wall motion abnormalities. Normal Left ventricular diastolic filling pattern. Left ventricular ejection fraction is estimated at 55-60 %. Right Ventricle Right ventricular dilatation. Right ventricular systolic pressure within normal limits. Right Atrium Mild right atrial dilatation. Left Atrium Normal left atrial size. Mitral Valve Structurally normal mitral valve. Mitral valve thickened. Mild mitral annular calcification. Mild mitral regurgitation. Aortic Valve Trileaflet aortic valve. No aortic valve stenosis or regurgitation. Aortic valve sclerosis. Tricuspid Valve Structurally normal tricuspid valve. Mild tricuspid regurgitation. Pulmonic Valve Structurally normal pulmonic valve. Trace pulmonic regurgitation. Pericardium No pericardial effusion. Aorta Normal size aortic root and proximal ascending aorta. CONCLUSIONS Left ventricular ejection fraction 55-60% RVSP 26 Mild mitral regurgitation Mild tricuspid regurgitation No pericardial effusion Previewed by: Dr. Duncan Avila DO (Electronically Signed) Final Date: 19 March 2024 13:55
--- NOTE | 2024-03-19 14:32 | P.CRDCN ---
History of Present Illness Consult date: 03/19/24 Consult reason: chest pain History of present illness: History of present illness: Patient is a pleasant 78-year-old female with significant past medical history of A-fib, hyperlipidemia, hypertension who presented to the emergency department with complaints of left arm pain and chest tightness. She does follow with Dr. Leblanc. She reports that yesterday she developed left arm pain that radiated from her shoulder down to her hand and her hand felt cool. She had a different feeling in her chest and it felt tight. She also had a little bit of shortness of breath. She denies any diaphoresis or nausea. She had not been doing much the day her symptoms started however the day prior she was doing a lot of outdoor activity. She denies any dizziness or lightheadedness. No syncope. She reports that she does check her blood pressure at home and it has been on the lower side in the 80s/50s but denies any symptoms with this. She normally is active. She reports she did have a stress test last year that was reported normal. Labs reviewed: Hemoglobin 13.1, potassium 4.8, creatinine 0.87, BNP 91, troponin negative. It appears she is not on any anticoagulation with her A-fib, uncertain why this is. Echocardiogram 03/19/24 with EF 55-60%, mild mitral regurgitation, mild tricuspid regurgitation, RVSP 26. She is feeling better tod ay. Denies any chest pain or pressure. Left arm pain is resolved. EKG today shows sinus rhythm with occasional PVCs. She did have a prior heart catheterization 09/24/2020 which showed mild CAD. Prior carotid ultrasound 05/2023 with no significant stenosis. REVIEW OF SYSTEMS: No fever or chills. No cough or expectoration. No diaphoresis. Patient denies headache, dizziness, blurred vision, double vision. Patient denies any stomach discomfort. No nausea, vomiting. No hematochezia. No hematemesis. Denies any black stools or blood in his stools. Denies dysuria or hematuria. No muscle weakness or numbness. No chest pain or pressure. PHYSICAL EXAMINATION: This is a 78-year-old female in no apparent distress at the time of my examination. HEENT: Head is atraumatic, normocephalic. Pupils are equal, round. Sclerae anicteric. Conjunctivae are clear. Mucous membranes of the mouth are moist. Neck is supple. There is no jugular venous distention. No carotid bruit is heard. CHEST EXAMINATION: Lungs are clear to auscultation. No chest wall tenderness is noted on palpation or with deep breathing. HEART EXAMINATION: Heart regular rate and rhythm. S1, S2 heard. No murmurs, gallops or rub. ABDOMEN: Soft, nontender. Bowel sounds are heard. No organomegaly noted. EXTREMITIES: 2+ peripheral pulses with no evidence of peripheral edema and no calf tenderness noted. NEUROLOGIC EXAMINATION: Patient is awake, alert and oriented x3. IMPRESSION AND PLAN: Atrial fibrillation, paroxysmal Hyperlipidemia Hypertension, currently issues with hypotension Left arm pain Chest tightness PLAN: Echocardiogram shows preserved EF no significant valve issues. Troponin is negative x 2. Discussed if symptoms worsen consider stress testing as an outpatient. Will defer to Dr. Leblanc for anticoagulation with A-fib. Okay to discharge home from a cardiology standpoint. Follow-up in office in 1-[address] Leblanc. I am dictating on behalf of Dr. Duncan Avila's history/physical and asses sment/plan. Past Medical History Past Medical History: Atrial Fibrillation, Cancer, Diabetes Mellitus, GERD/Reflux, Hyperlipidemia, Hypertension, Osteoarthritis (OA) Additional Past Medical History / Comment(s): RECENT LEFT LEG SQUAMOUS CELL LESION REMOVED, HIATAL HERNIA, SPINAL STENOSIS OF NECK, HX IRREGULAR HEART BEAT, HX ATRIAL FIB.,GONZALEZ'S ESOPHAGUS, OSTEOPOROSIS, CT scan SHOWED PULMONARY NODULE 7MM LT UPPER LOBE- PCP monitors, borderline diabetic History of Any Multi-Drug Resistant Organisms: None Reported Past Surgical History: Appendectomy, Back Surgery, Cardiac Ablation, Heart Catheterization, Hernia Repair, Hysterectomy, Joint Replacement, Tonsillectomy Additional Past Surgical History / Comment(s): LESION REMOVED LEFT LEG, KYLE SHOULDER REPLACEMENT, KYLE CATARACTS, skin cancer removed from face, colonoscopies, biopsy removed from back (benign)(2023) Past Anesthesia/Blood Transfusion Reactions: No Reported Reaction Past Psychological History: No Psychological Hx Reported Smoking Status: Former smoker Past Alcohol Use History: None Reported Past Drug Use History: None Reported - Past Family History Mother Family Medical History: Cancer Additional Family Medical History / Comment(s): BREAST & BONE CA- @ AGE 96 Sister(s) Family Medical History: Cancer Additional Family Medical History / Comment(s): SKIN CA Father Family Medical History: Dementia Additional Family Medical History / Comment(s): alzheimers. at age 92 Medications and Allergies Home Medications Medication Instructions Recorded Confirmed Type Omeprazole [PriLOSEC] 20 mg PO AC-BID 02/13/14 03/18/24 History Aspirin EC [Ecotrin Low Dose] 81 mg PO DAILY 12/04/22 03/18/24 History Lisinopril-Hctz 20-12.5 mg 1 tab PO DAILY 12/04/22 03/18/24 History [Zestoretic 20-12.5] Rosuvastatin Calcium [Crestor] 40 mg PO HS 12/04/22 03/18/24 History Cholecalciferol [Vitamin D3 (25 50 mcg PO DAILY 09/25/23 03/18/24 History Mcg = 1000 Iu)] Allergies Allergy/AdvReac Type Severity Reaction Status Date / Time niacin AdvReac Unknown MUSCLE Verified 03/18/24 13:36 ACHES floracaine Allergy Severe Swelling Uncoded 03/18/24 12:24 OF EYE LIDS FROM DROPS Physical Exam Vitals: Vital Signs Temp Pulse Resp BP Pulse Ox 03/19/24 09:58 56 L 18 117/60 99 03/19/24 06:09 50 L 16 98 03/19/24 05:00 55 L 16 114/57 95 03/18/24 23:00 50 L 17 106/47 94 L 03/18/24 22:00 52 L 16 111/57 94 L 03/18/24 21:00 55 L 16 110/56 97 03/18/24 20:00 52 L 111/57 94 L 03/18/24 18:15 98.0 F 61 17 122/59 96 03/18/24 16:25 97.8 F 54 L 18 139/64 99 03/18/24 15:45 98.2 F 66 16 110/84 95 03/18/24 15:35 59 L 16 113/63 95 03/18/24 12:20 98.2 F 69 18 131/86 96 Results 03/19/24 06:59 03/19/24 06:59 Cardiac Enzymes 03/18/24 03/18/24 03/19/24 Range/Units 13:35 13:35 06:59 AST 22 21 (14-36) U/L Troponin I <0.012 (0.000-0.034) ng/mL Coagulation 03/18/24 Range/Units 13:35 PT 10.2 (10.0-12.5) sec APTT 26.0 (22.0-30.0) sec CBC 03/18/24 03/19/24 Range/Units 13:35 06:59 WBC 5.4 5.2 (3.8-10.6) k/uL RBC 4.37 4.34 (3.80-5.40) m/uL Hgb 13.2 13.1 (11.4-16.0) gm/dL Hct 40.1 39.9 (34.0-46.0) % Plt Count 248 219 (150-450) k/uL Comprehensive Metabolic Panel 03/18/24 03/19/24 Range/Units 13:35 06:59 Sodium 138 139 (137-145) mmol/L Potassium 4.1 4.8 (3.5-5.1) mmol/L Chloride 102 105 (98-107) mmol/L Carbon Dioxide 26 31 H (22-30) mmol/L BUN 25 H 19 H (7-17) mg/dL Creatinine 0.89 0.87 (0.52-1.04) mg/dL Glucose 118 H 115 H (74-99) mg/dL Calcium 10.2 10.3 H (8.4-10.2) mg/dL AST 22 21 (14-36) U/L ALT 16 15 (4-34) U/L Alkaline Phosphatase 60 48 (38-126) U/L Total Protein 7.2 6.7 (6.3-8.2) g/dL Albumin 4.6 4.1 (3.5-5.0) g/dL Current Medications Generic Name Dose Route Start Last Admin Trade Name Freq PRN Reason Stop Dose Admin Acetaminophen 650 mg 03/18/24 16:02 Acetaminophen Tab 325 Mg Tab PO Q6HR PRN Mild Pain or Fever > 100.5 Aspirin 81 mg 03/19/24 09:00 03/19/24 08:12 Aspirin 81 Mg PO 81 mg DAILY LEO Administration Atorvastatin Calcium 80 mg 03/18/24 21:00 03/18/24 20:47 Atorvastatin 80 Mg Tab PO 80 mg HS LEO Administration Naloxone HCl 0.2 mg 03/18/24 16:02 Naloxone 0.4 Mg/Ml 1 Ml Vial IV Q2M PRN Opioid Reversal Pantoprazole Sodium 40 mg 03/18/24 17:30 03/19/24 08:12 Pantoprazole 40 Mg Tablet PO 40 mg AC-BID LEO Administration 03/19/24 06:59 03/19/24 06:59
--- NOTE | 2024-03-19 14:59 | P.DS ---
Providers Date of admission: 03/18/24 16:11 Expected date of discharge: 03/19/24 Attending physician: Elva Jacome MD Consults: 03/18/24 16:03 Consult Physician Routine Consulting Provider: Duncan Avila Consult Reason/Comments: chest pain Do you want consulting provider notified?: Yes Primary care physician: [facility] Course: 78-year-old female, past medical history of atrial fibrillation, hyperlipidemia, hypertension presenting for chest pressure with radiation down her left arm. This is resting pain, not on exertion. Lasts for few minutes. She woke up with the chest pressure. Then noticed radiation down her left arm and hand. [place] arm was cold. Has chronic chest discomfort from hx of Holt's esophagus and prior left shoulder replacement however this time her chest pain is different. Feels like a heavy sensation. Patient has no history of prior CT, states she "has "leaky valves". No family history of ACS or strokes. Patient is a non-smoker. Had some nausea but no shortness of breath, no dizziness, lower extremity swelling, recent travel surgeries or hospitalizations, no cough or hemoptysis. patient also reported that her blood pressure was low down to 85/55 and that her primary care physician told her to come to the ER to check on it. In the emergency department cxr and trops negative. She was admitted for further evalua tion. patient was placed in observation, telemetry did not show any acute changes. Troponin was cycled, were normal. Patient had an echocardiogram which showed normal EF. She was seen by cardiology who cleared her for discharge, she will need to follow with Dr. Leblanc to see if she qualifies for stress testing as an outpatient. She will be discharged in a stable condition. Patient was seen and examined on the day of discharge 03/19 Time for discharge 35 minutes. Plan - Discharge Summary New Discharge Prescriptions: Continue Omeprazole [PriLOSEC] 20 mg PO AC-BID Rosuvastatin Calcium [Crestor] 40 mg PO HS Lisinopril-Hctz 20-12.5 mg [Zestoretic 20-12.5] 1 tab PO DAILY Cholecalciferol [Vitamin D3 (25 Mcg = 1000 Iu)] 50 mcg PO DAILY Aspirin EC [Ecotrin Low Dose] 81 mg PO DAILY Discharge Medication List Omeprazole [PriLOSEC] 20 mg PO AC-BID 02/13/14 [History] Aspirin EC [Ecotrin Low Dose] 81 mg PO DAILY 12/04/22 [History] Lisinopril-Hctz 20-12.5 mg [Zestoretic 20-12.5] 1 tab PO DAILY 12/04/22 [History] Rosuvastatin Calcium [Crestor] 40 mg PO HS 12/04/22 [History] Cholecalciferol [Vitamin D3 (25 Mcg = 1000 Iu)] 50 mcg PO DAILY 09/25/23 [History] Follow up Appointment(s)/Referral(s): Walt Leblanc MD [STAFF PHYSICIAN] - 1 Week René Geronimo DO [Primary Care Provider] - 1-2 days Activity/Diet/Wound Care/Special Instructions: Follow up with Dr Leblanc to determine need for stress testing.
[2024-03-19 15:13] VITALS: BP 109/62; PULSE 65; RESP 18
== END 2024-03-19 16:34 | disposition home or self-care (01) ==
LOC: EC 12:11 → 6NMEDSUR 16:11
PROVIDERS: ADMIT Family Medicine; ATTEND Family Medicine
DX: R07.89 Other chest pain (principal); I48.0 Paroxysmal atrial fibrillation; I95.9 Hypotension, unspecified; I08.1 Rheumatic disorders of both mitral and tricuspid valves; I25.10 Atherosclerotic heart disease of native coronary artery without angina pectoris; E78.5 Hyperlipidemia, unspecified; I10 Essential (primary) hypertension; I49.3 Ventricular premature depolarization; K22.70 Barrett's esophagus without dysplasia; M79.602 Pain in left arm; M25.512 Pain in left shoulder; Z79.82 Long term (current) use of aspirin; Z79.899 Other long term (current) drug therapy; Z88.8 Allergy status to other drugs, medicaments and biological substances; Z87.891 Personal history of nicotine dependence; Z96.612 Presence of left artificial shoulder joint
CPT/HCPCS: 36415; 71046; 80053; 82150; 83690; 83735; 83880; 84484; 85025; 85610; 85730; 93005; 93306; 99285